=== PATIENT | female | born 1950 | race Caucasian/White ===

== ENCOUNTER 2017-06-08 08:48 | Emergency (ER) | payer OTHER ==
[~2017-06-08] VITALS: Ht 172.7 cm; Wt 104.3 kg
[~2017-06-08 08:48] MED LIST: ? ANTIDEPRESSANT; ALPR.25 PO; ALPR.5; AMLO10; AMOCLA875 PO; ARIP10 PO; ARIP15 PO; ASCO500 PO; ASPI81CH PO; ASPI81EC PO; ATOR20 PO; BUPR150ER PO; Bactrim Ds Tab1 EACH PO; Bupropion Xl150 MG PO; CALCAVITD PO; CARV3.125 PO; CEPH500; CEPH500 PO; CHOL10002 PO; CITA20; COLL250TO; CRANBERRY; DILT120; DILT120ERA PO; DILT180 PO; DILT180ER; DILT240; DILT240 PO; DILTIAZEM; DOXA4; DOXA4 PO; DULO60; DULO60 PO; ESCI20; EZET10; EZET10-20 PO; FISH1000 PO; FLUC150A PO; FLUO10 PO; FLUO20; FLUO20 PO; FURO40; FURO40 PO; FURO80; GABA600; GINKO BILOBA; GLIM4; GLUCHON PO; HYDACE5 PO; HYDCHL25 PO; HYDR1TAB94 PO; Humalog100 UNIT/1; Humalog100 UNIT/3 SC; INSLI100I; INSLI100I SC; INSULANI; INSULANI SC; INSULANI SUBQ; INSULANPEN SC; INSULANPEN SQ; Keflex500 MG PO; LEVFLO500 PO; LISI20; LISI20 PO; LISI5 PO; Lantus100 UNIT/1 SC; MAGCHL64ER PO; MELA3 PO; MEMA10 PO; METF500; METF500 PO; METF500C; METF850; MULVITB PO; MULVITMIND PO; Micro-K10 MEQ; Mobic15 MG PO; NAPR500; NITR100CA PO; Norco 5-325 Ta1 EACH PO; PIOG15; POTCHL10ER PO; PRAV20 PO; PROM25 PO; Percocet 5-3251 EACH PO; Pravastatin Sod40 MG PO; RANI150; RXAMOCLASU PO; SIMV10 PO; SIMV20; SPIR50; SULTRIDS PO; TRAM50 PO; TRIBENZOR 40-11 EAC1 PO; TRIBENZOR 40-51 EACH PO; VALS80; VENL75ER; VIIBRYD40 MG PO; [UNRECOGNIZED DRUG - OTHER]
[2017-06-08 09:35] LABS: BASOPHILS ABSOLUTE AUTO 0.06 K/mm3 (0.00-0.23); BASOPHILS PERCENT AUTO 1 % (0-2); EOSINOPHILS ABSOLUTE AUTO 0.01 K/mm3 (0.00-0.68); EOSINOPHILS PERCENT AUTO 0 % (0-6); Hematocrit 32.5 % (33.0-51.0); Hemoglobin 10.5 g/dL (11.5-16.0); IMMATURE GRAN ABSOLUTE AUTO 0.02 K/mm3 (0.00-0.10); IMMATURE GRAN PERCENT AUTO 0 % (0-1); LYMPHOCYTES ABSOLUTE AUTO 0.89 K/mm3 (0.84-5.20); LYMPHOCYTES PERCENT AUTO 11 % (21-46); MONOCYTES ABSOLUTE AUTO 0.78 K/mm3 (0.16-1.47); MONOCYTES PERCENT AUTO 10 % (4-13); Mean Corpuscular HGB 26.7 pg (26.0-34.0); Mean Corpuscular HGB Conc 32.3 g/dL (31.5-36.5); Mean Corpuscular Volume 83 fL (80-100); Mean Platelet Volume 9.7 fL (9.1-12.4); NEUTROPHILS ABSOLUTE AUTO 6.31 K/mm3 (1.96-9.15); NEUTROPHILS PERCENT AUTO 78 % (41-73); Platelet Count 271 K/mm3 (150-400); RDW Coefficient Variation 14.6 % (11.7-14.2); RDW Standard Deviation 44.2 fL (35.1-46.3); Red Blood Cell Count 3.93 M/mm3 (3.80-5.20); White Blood Cell Count 8.07 K/mm3 (4.00-11.30)
[2017-06-08 09:43] LABS: Bun/Creatinine Ratio 18.9 (12.0-20.0); Calcium, Blood 8.4 mg/dL (8.5-10.1); Creatinine, Blood 1.32 mg/dL (0.40-1.00); Potassium, Blood 3.6 mmol/L (3.5-5.5)
[2017-10-01] MEDS ORDERED: Norco 10-325 T1 EACH PO (06:54)
== END 2017-06-08 18:54 | disposition home or self-care (01) ==
LOC: ER 08:48
PROVIDERS: Emergency Medicine
DX: R53.1 Weakness (principal); Z91.012 Allergy to eggs; Z88.8 Allergy status to other drugs, medicaments and biological substances; Z79.899 Other long term (current) drug therapy; Z79.4 Long term (current) use of insulin; I10 Essential (primary) hypertension; E11.9 Type 2 diabetes mellitus without complications; F32.9 Major depressive disorder, single episode, unspecified; E78.5 Hyperlipidemia, unspecified; F03.90 Unspecified dementia, unspecified severity, without behavioral disturbance, psychotic disturbance, mood disturbance, and anxiety
CPT/HCPCS: 51701; 80048; 85025; 93005; 93010; 96360; 99284; J7030

== ENCOUNTER 2017-09-30 16:01 | Emergency (ER) | payer OTHER ==
[~2017-09-30] VITALS: Ht 172.7 cm; Wt 136.1 kg
[2017-09-30] MEDS ORDERED: LACT10SY (16:18)
[2017-09-30] MEDS ORDERED: HYDRA25 (16:18)
[2017-09-30] MEDS ORDERED: HYDR1TAB94 PO (17:07)
[2017-09-30] MEDS ORDERED: ULTRA-LIGHT RO1 EACH MC (17:13)
[2017-10-01] MEDS ORDERED: Norco 10-325 T1 EACH PO (06:54)
== END 2017-09-30 19:20 | disposition home or self-care (01) ==
LOC: ER 16:01
DX: S32.591A Other specified fracture of right pubis, initial encounter for closed fracture (principal); E11.9 Type 2 diabetes mellitus without complications; I10 Essential (primary) hypertension; F32.9 Major depressive disorder, single episode, unspecified; E78.5 Hyperlipidemia, unspecified; F03.90 Unspecified dementia, unspecified severity, without behavioral disturbance, psychotic disturbance, mood disturbance, and anxiety; Z91.012 Allergy to eggs; Z88.8 Allergy status to other drugs, medicaments and biological substances; Z88.7 Allergy status to serum and vaccine; Z79.899 Other long term (current) drug therapy; Z79.4 Long term (current) use of insulin; Z87.891 Personal history of nicotine dependence; W18.30XA Fall on same level, unspecified, initial encounter
CPT/HCPCS: 73502; 73562-RT; 99283

== ENCOUNTER 2019-02-28 07:48 | Inpatient (IN) | payer OTHER ==
[~2019-02-28] VITALS: Ht 172.7 cm; Wt 122.0 kg
[~2019-02-28 07:48] MED LIST changes: +FURO20 PO; +HYDRA25; +LACT10SY; -Micro-K10 MEQ; +Norco 10-325 T1 EACH PO; +POTCHL20ER PO; +ULTRA-LIGHT RO1 EACH MC
[2019-02-28 08:22] LABS: BASOPHILS ABSOLUTE AUTO 0.11 K/mm3 (0.00-0.23); BASOPHILS PERCENT AUTO 0 % (0-2); EOSINOPHILS PERCENT AUTO 0 % (0-6); Hematocrit 34.1 % (33.0-51.0); Hemoglobin 10.8 g/dL (11.5-16.0); IMMATURE GRAN ABSOLUTE AUTO 0.69 K/mm3 (0.00-0.10); IMMATURE GRAN PERCENT AUTO 2 % (0-1); LYMPHOCYTES ABSOLUTE AUTO 0.49 K/mm3 (0.84-5.20); LYMPHOCYTES PERCENT AUTO 1 % (21-46); MONOCYTES ABSOLUTE AUTO 0.95 K/mm3 (0.16-1.47); MONOCYTES PERCENT AUTO 2 % (4-13); Mean Corpuscular HGB 27.1 pg (26.0-34.0); Mean Corpuscular HGB Conc 31.7 g/dL (31.5-36.5); Mean Corpuscular Volume 86 fL (80-100); Mean Platelet Volume 11.1 fL (9.1-12.4); NEUTROPHILS PERCENT AUTO 95 % (41-73); Platelet Count 267 K/mm3 (150-400); RDW Coefficient Variation 14.2 % (11.7-14.2); RDW Standard Deviation 43.5 fL (35.1-46.3); Red Blood Cell Count 3.98 M/mm3 (3.80-5.20); White Blood Cell Count 41.04 K/mm3 (4.00-11.30)
[2019-02-28 08:35] LABS: Source, Urine Catheter
[2019-02-28 08:37] LABS: Bilirubin, Urine Neg (Neg); Blood, Urine 4+ (Neg); Glucose Qualitative, Urine 2+ (Neg); Ketones, Urine 1+ (Neg); Leukocyte Esterase, Urine Neg (Neg); Nitrite, Urine Neg (Neg); Protein, Urine 4+ (Neg); Urobilinogen, Urine NORM (Normal)
[2019-02-28 08:41] LABS: Albumin, Blood 2.8 g/dL (3.4-5.0); Albumin/Globulin Ratio 0.7 (0.8-1.8); Bilirubin, Total 0.3 mg/dL (0.1-1.0); Bun/Creatinine Ratio 22.3 (12.0-20.0); Calcium, Blood 8.6 mg/dL (8.5-10.1); Creatinine, Blood 1.88 mg/dL (0.40-1.00); Globulin, Blood 4.2 g/dL (2.2-4.0); Potassium, Blood 4.8 mmol/L (3.5-5.5)
[2019-02-28 08:47] LABS: Appearance, Urine Hazy (Clear); Color, Urine Yellow (P-Yellow)
[2019-02-28 08:55] LABS: Amorphous Light (0-Heavy); Bacteria Mod /hpf
[2019-02-28] MEDS ORDERED: ACET500 PO (08:57)
[2019-02-28] MEDS ORDERED: ALEN70 PO (08:58)
[2019-02-28] MEDS ORDERED: DILT60 PO (08:58)
[2019-02-28 08:59] LABS: Granular Casts 0-2 /lpf (0)
[2019-02-28] MEDS ORDERED: FERSU300 PO (08:59)
[2019-02-28] MEDS ORDERED: NYSTRITC TOP (09:00)
[2019-02-28] MEDS ORDERED: OLAN10 PO (09:00)
[2019-02-28] MEDS ORDERED: CRANBERRY250 MG PO (09:02)
[2019-02-28 09:04] LABS: Squamous Epithelial Cells Few /hpf (Few)
[2019-02-28 10:16] LABS: C-REACTIVE PROTEIN, EXT RANGE 3.62 mg/dL (0.000-0.300)
[2019-02-28 10:47] LABS: Creatine Kinase MB 3.4 ng/mL (0.0-3.6); Creatine Kinase MB Index 0.9 (0.0-4.0)
--- NOTE | 2019-02-28 13:30 | NUR ---
PT TRANSFERRED TO ROOM 350 FROM 330, BEDSIDE REPORT RECEIVED FROM SERA BILLS. PT DROWSY, WAKES WITH VERBAL STIMULI, 1 OR 2 WORD ANSWERS, CONFUSED AND VERY FORGETFUL. BED ALARM ARMED, WILL CONTINUE TO MONITOR
--- NOTE | 2019-02-28 13:46 | NUR ---
report given to Lindy Abdullahi RN. patient tranferred to room 350. Caregivers notified of transfer
[2019-02-28] MEDS ORDERED: IRON150C PO (15:12)
[2019-02-28] MEDS ORDERED: IRON 100-VITAM1 EACH PO (15:12)
[2019-02-28] MEDS ORDERED: ERGO400 PO (15:13)
[2019-02-28] MEDS ORDERED: B Complex-Foli1 EACH PO (15:13)
--- NOTE | 2019-02-28 18:24 | NUR ---
PT REMAINS DROWSY, NOT WAKING FULLY TO EAT, DINNER HELD UNTIL PT WILL WAKEN FURTHER.
--- NOTE | 2019-03-01 04:21 | NUR ---
SHIFT SUMMARY PATIENT VERY PLEASANT BUT CONFUSED. SHE IS SLOW TO RESPOND TO QUESTIONS ASKED OF HER. PATIENT ABLE TO SLEEP ALL NIGHT. IV IN RIGHT FOREARM PATENT AND INFUSING. BED IN LOWEST POSITION WITH BRAKES LOCKED AND ALARM ON. CALL LIGHT WITHIN REACH. PALLIATIVE CARE WAS CALLED TO ALERT THEM OF A CONSULT BEING ORDERED FOR THIS PATIENT. REPORT GIVEN TO ONCOMING RN.
[2019-03-01 05:23] LABS: BASOPHILS ABSOLUTE AUTO 0.05 K/mm3 (0.00-0.23); BASOPHILS PERCENT AUTO 0 % (0-2); EOSINOPHILS PERCENT AUTO 0 % (0-6); Hemoglobin 8.3 g/dL (11.5-16.0); IMMATURE GRAN ABSOLUTE AUTO 0.15 K/mm3 (0.00-0.10); IMMATURE GRAN PERCENT AUTO 1 % (0-1); LYMPHOCYTES ABSOLUTE AUTO 1.26 K/mm3 (0.84-5.20); LYMPHOCYTES PERCENT AUTO 6 % (21-46); MONOCYTES ABSOLUTE AUTO 0.76 K/mm3 (0.16-1.47); MONOCYTES PERCENT AUTO 3 % (4-13); Mean Corpuscular HGB 26.2 pg (26.0-34.0); Mean Corpuscular HGB Conc 30.7 g/dL (31.5-36.5); Mean Corpuscular Volume 85 fL (80-100); Mean Platelet Volume 11.6 fL (9.1-12.4); NEUTROPHILS ABSOLUTE AUTO 20.74 K/mm3 (1.96-9.15); NEUTROPHILS PERCENT AUTO 90 % (41-73); Platelet Count 195 K/mm3 (150-400); RDW Coefficient Variation 14.7 % (11.7-14.2); Red Blood Cell Count 3.17 M/mm3 (3.80-5.20); White Blood Cell Count 22.96 K/mm3 (4.00-11.30)
[2019-03-01 05:40] LABS: Albumin/Globulin Ratio 0.6 (0.8-1.8); Bilirubin, Total 0.2 mg/dL (0.1-1.0); Bun/Creatinine Ratio 20.2 (12.0-20.0); Calcium, Blood 7.8 mg/dL (8.5-10.1); Creatinine, Blood 2.18 mg/dL (0.40-1.00); Globulin, Blood 3.5 g/dL (2.2-4.0); Potassium, Blood 4.5 mmol/L (3.5-5.5); Total Protein, Blood 5.5 g/dL (6.4-8.2)
[2019-03-02 05:12] LABS: BASOPHILS ABSOLUTE AUTO 0.03 K/mm3 (0.00-0.23); BASOPHILS PERCENT AUTO 0 % (0-2); EOSINOPHILS ABSOLUTE AUTO 0.02 K/mm3 (0.00-0.68); EOSINOPHILS PERCENT AUTO 0 % (0-6); Hematocrit 25.4 % (33.0-51.0); Hemoglobin 7.9 g/dL (11.5-16.0); IMMATURE GRAN ABSOLUTE AUTO 0.08 K/mm3 (0.00-0.10); IMMATURE GRAN PERCENT AUTO 1 % (0-1); LYMPHOCYTES ABSOLUTE AUTO 1.07 K/mm3 (0.84-5.20); LYMPHOCYTES PERCENT AUTO 7 % (21-46); MONOCYTES ABSOLUTE AUTO 0.67 K/mm3 (0.16-1.47); MONOCYTES PERCENT AUTO 5 % (4-13); Mean Corpuscular HGB 27.3 pg (26.0-34.0); Mean Corpuscular HGB Conc 31.1 g/dL (31.5-36.5); Mean Platelet Volume 10.9 fL (9.1-12.4); NEUTROPHILS ABSOLUTE AUTO 12.93 K/mm3 (1.96-9.15); NEUTROPHILS PERCENT AUTO 88 % (41-73); Platelet Count 172 K/mm3 (150-400); RDW Coefficient Variation 14.8 % (11.7-14.2); RDW Standard Deviation 48.3 fL (35.1-46.3); Red Blood Cell Count 2.89 M/mm3 (3.80-5.20)
[2019-03-02 05:17] LABS: Mean Corpuscular Volume 88 fL (80-100)
[2019-03-02 05:34] LABS: Albumin, Blood 1.9 g/dL (3.4-5.0); Albumin/Globulin Ratio 0.5 (0.8-1.8); Bilirubin, Total 0.1 mg/dL (0.1-1.0); Bun/Creatinine Ratio 21.7 (12.0-20.0); Calcium, Blood 7.7 mg/dL (8.5-10.1); Creatinine, Blood 2.21 mg/dL (0.40-1.00); Globulin, Blood 3.6 g/dL (2.2-4.0); Potassium, Blood 4.4 mmol/L (3.5-5.5); Total Protein, Blood 5.5 g/dL (6.4-8.2)
--- NOTE | 2019-03-02 05:49 | NUR ---
SHIFT SUMMARY NO ACUTE EVENTS OVERNIGHT. PT IS A&0, 1 PER ASSIST IN BR. PT IS SLOW TO RESPOND, DISORIENTED TO CURRENT DATER OTHERWISE ANSWERS Q'S APPROP. WILL CONT TO MONITOR AND PROVIDE CARE UNTIL PRESUMED BY ONCOMING RN.
[2019-03-02] MEDS ORDERED: CLIN150 PO (11:13)
--- NOTE | 2019-03-02 13:44 | NUR ---
DISCHARGE PT IS PLEASANT/COOPERATIVE HOWEVER CONFUSED, VERY FORGETFUL. L LEG CELLULITIS IMPROVING, MILDLY RED, SOMEWHAT SWOLLEN 1+. SHE STATE PAIN W MOVEMENT/WTBRG, PRN TYLENOL GIVEN FOR RELIEF. DR MENDEZ IN TO SEE PT, STATE READY TO GO HOME, PROVIDE ORDERS. [facility] NOTIFIED. BUSINESS PROCESS MODELER SET-UP TRANSPORT THRU TRANSLINK. IV D/C INTACT. CERTIFIED NURSE ASSIST PT TO DRESS/GATHER BELONGINGS. D/C INSTRUCT PLACED IN PACKET & SENT W W/C ELEVATOR REPAIR MECHANIC TO PROVIDE TO CAREGIVERS @ [facility]. SCRIPT FAXED TO [facility]/CAREGIVER.
== END 2019-03-02 13:37 | disposition home health service (06) | DRG 872 ==
LOC: ER 07:48 → MEDS 11:01 → ENPENDDIS 03-02 10:59 → MEDS 03-02 13:37
PROVIDERS: Emergency Medicine; Internal Medicine; Nurse Practitioner Acute Care; ADMIT Internal Medicine
DX: A41.9 Sepsis, unspecified organism (principal); N17.9 Acute kidney failure, unspecified; N18.4 Chronic kidney disease, stage 4 (severe); L03.116 Cellulitis of left lower limb; Z68.42 Body mass index [BMI] 45.0-49.9, adult; R65.20 Severe sepsis without septic shock; E11.22 Type 2 diabetes mellitus with diabetic chronic kidney disease; F03.90 Unspecified dementia, unspecified severity, without behavioral disturbance, psychotic disturbance, mood disturbance, and anxiety; F32.9 Major depressive disorder, single episode, unspecified; I12.9 Hypertensive chronic kidney disease with stage 1 through stage 4 chronic kidney disease, or unspecified chronic kidney disease; E11.42 Type 2 diabetes mellitus with diabetic polyneuropathy; E86.0 Dehydration; M81.0 Age-related osteoporosis without current pathological fracture; E66.9 Obesity, unspecified; Z87.891 Personal history of nicotine dependence; Z89.422 Acquired absence of other left toe(s)
CPT/HCPCS: 36415; 71046; 80053; 81001; 82550; 82553; 82947; 83605; 83735; 84100; 85025; 85651; 86140; 87086; 96365; 97162; 97166; 97530; 97535; 99285-25; J1644; J3370; J7030; J7050; P9612

== ENCOUNTER 2019-06-10 09:29 | Inpatient (IN) | payer OTHER ==
[~2019-06-10] VITALS: Ht 172.7 cm; Wt 117.9 kg
[~2019-06-10 09:29] MED LIST changes: +ACET500 PO; +ALEN70 PO; +B Complex-Foli1 EACH PO; -Bupropion Xl150 MG PO; +CLIN150 PO; +CRANBERRY250 MG PO; +DILT60 PO; +ERGO400 PO; +IRON 100-VITAM1 EACH PO; +IRON150C PO; +NYSTRITC TOP; +OLAN10 PO; +Vitron-C Table1 EACH PO
[2019-06-10] MEDS ORDERED: FURO20 PO (09:49)
[2019-06-10] MEDS ORDERED: POTA10T PO ×2 (09:49→14:35)
[2019-06-10] MEDS ORDERED: VITAMIN D34000 UNIT PO (09:54)
[2019-06-10] MEDS ORDERED: Cranberry400 MG PO (09:55)
[2019-06-10 12:06] LABS: Source, Urine Clean Catch
[2019-06-10 12:20] LABS: Bilirubin, Urine Neg (Neg); Blood, Urine 2+ (Neg); Glucose Qualitative, Urine 2+ (Neg); Ketones, Urine Neg (Neg); Leukocyte Esterase, Urine Neg (Neg); Nitrite, Urine Neg (Neg); Protein, Urine 4+ (Neg); Specific Gravity, Urine 1.015 (1.003-1.022); Urobilinogen, Urine NORM (Normal)
[2019-06-10 12:26] LABS: BASOPHILS ABSOLUTE AUTO 0.05 K/mm3 (0.00-0.23); BASOPHILS PERCENT AUTO 1 % (0-2); EOSINOPHILS ABSOLUTE AUTO 0.01 K/mm3 (0.00-0.68); EOSINOPHILS PERCENT AUTO 0 % (0-6); Hemoglobin 10.3 g/dL (11.5-16.0); IMMATURE GRAN ABSOLUTE AUTO 0.04 K/mm3 (0.00-0.10); IMMATURE GRAN PERCENT AUTO 1 % (0-1); LYMPHOCYTES ABSOLUTE AUTO 0.51 K/mm3 (0.84-5.20); LYMPHOCYTES PERCENT AUTO 7 % (21-46); MONOCYTES PERCENT AUTO 5 % (4-13); Mean Corpuscular HGB Conc 30.3 g/dL (31.5-36.5); Mean Corpuscular Volume 89 fL (80-100); Mean Platelet Volume 10.4 fL (9.1-12.4); NEUTROPHILS ABSOLUTE AUTO 6.64 K/mm3 (1.96-9.15); NEUTROPHILS PERCENT AUTO 87 % (41-73); Platelet Count 220 K/mm3 (150-400); RDW Coefficient Variation 14.7 % (11.7-14.2); RDW Standard Deviation 47.4 fL (35.1-46.3); Red Blood Cell Count 3.82 M/mm3 (3.80-5.20); White Blood Cell Count 7.65 K/mm3 (4.00-11.30)
[2019-06-10 12:31] LABS: Influenza A Positive (NEGATIVE); Influenza B Negative (NEGATIVE)
[2019-06-10 12:39] LABS: Appearance, Urine Hazy (Clear); Color, Urine Yellow (P-Yellow)
[2019-06-10 12:43] LABS: Albumin, Blood 2.5 g/dL (3.4-5.0); Albumin/Globulin Ratio 0.6 (0.8-1.8); Bilirubin, Total 0.3 mg/dL (0.1-1.0); Bun/Creatinine Ratio 15.3 (12.0-20.0); Calcium, Blood 8.1 mg/dL (8.5-10.1); Creatinine, Blood 1.76 mg/dL (0.40-1.00); Globulin, Blood 4.1 g/dL (2.2-4.0); Potassium, Blood 4.1 mmol/L (3.5-5.5); Total Protein, Blood 6.6 g/dL (6.4-8.2)
[2019-06-10 12:46] LABS: Red Blood Cells, Urine 0-2 /hpf (0-2); Squamous Epithelial Cells Rare /hpf (Few)
[2019-06-10 12:47] LABS: Amorphous Heavy (0-Heavy); Bacteria Mod /hpf; Transitional Epithelial Cells Rare /hpf (0-Rare)
[2019-06-10] MEDS ORDERED: OLANZAPINE10 MG PO (14:29)
[2019-06-10] MEDS ORDERED: MEMANTINE HCL10 MG PO (14:29)
[2019-06-10] MEDS ORDERED: Vitamin D2000 UNIT PO (14:30)
[2019-06-10] MEDS ORDERED: ARIP10 PO (14:30)
[2019-06-10] MEDS ORDERED: ALENDRONATE SOD70 MG PO (14:33)
[2019-06-10] MEDS ORDERED: FERSU300 PO (14:34)
[2019-06-10] MEDS ORDERED: ASCO500 PO (14:34)
[2019-06-10] MEDS ORDERED: B Complex-Foli1 EACH PO (14:35)
[2019-06-10] MEDS ORDERED: ACET500 PO (18:25)
[2019-06-10] MEDS ORDERED: NYAMYC15 GM TOP (18:29)
--- NOTE | 2019-06-10 18:51 | NUR ---
SHIFT SUMMARY PT WAS AN ER ADMIT THIS ALIA. SHE OPENS HER EYES WHEN YOU SAY HER NAME BUT IS VERY DROWSY AND NOT ORIENTED OTHER THAN TO HERSELF. SHE IS INC AND X 2 MAX ASSIST FOR TURNING AND TOILETING. PO MEDS WERE HELD DUE TO HER NOT BEING ABLE TO SWALLOW AND WAS NOTIFIED. PER PALLIATIVE CARE BAR STAFF IS AN ISSUE FOR THIS PT. SHE IS RESTING IN BED WITH THE BED ALARM ON FOR SAFETY. REPORT GIVEN TO ONCOMING NURSE.
--- NOTE | 2019-06-10 23:42 | NUR ---
ELEVATED BP @HS *LATE ENTRY* BP WAS 181/95, 10MG IV HYDRALAZINE GIVEN PER ORDERS WHEN BP RECHECKED IT DECREASED TO 162/78. CALL LIGHT IN REACH WCTM.
--- NOTE | 2019-06-11 01:01 | NUR ---
SAAVEDRA PLACED 14 FR SAAVEDRA PLACED, SINCE ORDERS WERE ENTERED FOR ONE ALONG W/STRICT I&O & PT DID NOT HAVE ONE YET. BLADDER SCANNED BEFORE PLACING CATH & PT HAD 389ML IN BLADDER. PT TOLERATED WELL & UA WAS SENT TO LAB PER PROTOCOL. CALL LIGHT IN REACH. TM.
[2019-06-11 01:17] LABS: Source, Urine Catheter
[2019-06-11 01:22] LABS: Bilirubin, Urine Neg (Neg); Blood, Urine 3+ (Neg); Glucose Qualitative, Urine 2+ (Neg); Ketones, Urine Neg (Neg); Leukocyte Esterase, Urine Neg (Neg); Nitrite, Urine Neg (Neg); Protein, Urine 4+ (Neg); Specific Gravity, Urine 1.025 (1.003-1.022); Urobilinogen, Urine NORM (Normal)
[2019-06-11 01:28] LABS: Appearance, Urine Clear (Clear); Color, Urine Yellow (P-Yellow)
[2019-06-11 01:30] LABS: Amorphous Light (0-Heavy); Bacteria Rare /hpf; Hyaline Casts 0-2 /lpf (0-2); Squamous Epithelial Cells Rare /hpf (Few); White Blood Cells, Urine Not Seen /hpf (0-5)
[2019-06-11 02:09] LABS: BASOPHILS ABSOLUTE AUTO 0.02 K/mm3 (0.00-0.23); BASOPHILS PERCENT AUTO 0 % (0-2); EOSINOPHILS PERCENT AUTO 0 % (0-6); Hematocrit 31.4 % (33.0-51.0); Hemoglobin 9.7 g/dL (11.5-16.0); IMMATURE GRAN ABSOLUTE AUTO 0.03 K/mm3 (0.00-0.10); IMMATURE GRAN PERCENT AUTO 1 % (0-1); LYMPHOCYTES ABSOLUTE AUTO 0.68 K/mm3 (0.84-5.20); LYMPHOCYTES PERCENT AUTO 11 % (21-46); MONOCYTES PERCENT AUTO 6 % (4-13); Mean Corpuscular HGB Conc 30.9 g/dL (31.5-36.5); Mean Corpuscular Volume 88 fL (80-100); Mean Platelet Volume 10.5 fL (9.1-12.4); NEUTROPHILS ABSOLUTE AUTO 5.17 K/mm3 (1.96-9.15); NEUTROPHILS PERCENT AUTO 82 % (41-73); Platelet Count 189 K/mm3 (150-400); RDW Coefficient Variation 14.7 % (11.7-14.2); RDW Standard Deviation 47.3 fL (35.1-46.3); Red Blood Cell Count 3.59 M/mm3 (3.80-5.20)
[2019-06-11 02:53] LABS: Albumin/Globulin Ratio 0.6 (0.8-1.8); Bilirubin, Total 0.2 mg/dL (0.1-1.0); Bun/Creatinine Ratio 16.6 (12.0-20.0); Calcium, Blood 7.8 mg/dL (8.5-10.1); Creatinine, Blood 1.93 mg/dL (0.40-1.00); Globulin, Blood 3.6 g/dL (2.2-4.0); Potassium, Blood 3.8 mmol/L (3.5-5.5); Total Protein, Blood 5.6 g/dL (6.4-8.2)
--- NOTE | 2019-06-11 06:09 | NUR ---
SHIFT SUMMARY AOX2, SELF & TOWN ONLY. CAN ANSWER SIMPLE YES/NO QUESTIONS & FOLLOW DIRECTIONS. STATES SHE IS VERY TIRED. DENIES PAIN OR NAUSEA. TELE RUNNING NSR HR 82. VSS. SAAVEDRA PLACED PER ORDERS FOR STRICT I&O. NITRO PATCHED PLACED PER ORDERS. TURNED & REPOSITIONED PRN. CALL LIGHT IN REACH. WCTM.
--- NOTE | 2019-06-11 09:57 | NUR ---
SPOKE WITH DR. NGO VIA PHONE, NPO ORDER IN PLACE BUT PROVIDER STATES OK TO GIVE ORAL MEDS THIS AM IF ALERT. IF COUGHING WHILE ATTEMPTING MEDS TO GET A SPEECH EVAL.
[2019-06-12 05:27] LABS: Hematocrit 31.4 % (33.0-51.0); Hemoglobin 9.6 g/dL (11.5-16.0)
[2019-06-12 05:57] LABS: Albumin, Blood 1.9 g/dL (3.4-5.0); Anion Gap 6 mmol/L (6-16); Blood Urea Nitrogen 42 mg/dL (8-24); Bun/Creatinine Ratio 18.9 (12.0-20.0); CO2, Blood 26 mmol/L (21-32); Calcium, Blood 7.6 mg/dL (8.5-10.1); Chloride, Blood 111 mmol/L (98-108); Creatinine, Blood 2.22 mg/dL (0.40-1.00); Glomerular Filtration Rate 23 (60-); Glucose, Blood 95 mg/dL (70-99); Phosphorus, Blood 3.2 mg/dL (2.5-4.9); Potassium, Blood 3.9 mmol/L (3.5-5.5); Sodium, Blood 143 mmol/L (136-145)
--- NOTE | 2019-06-12 07:53 | NUR ---
SHIFT SUMMARY ALERT-TO SELF & PLACE ONLY. VERY FORGETFUL & CONFUSED @TIMES. THINKS ITS JAN 2003. HAS SET OFF BED ALARM MULTIPLE TIMES T/O NIGHT. IS MORE VERBAL TONIGHT THEN PREVIOUS, IS ABLE TO ANSWER ALL QUESTIONS & FOLLOW DIRECTIONS, BUT QUICKLY FORGETS WHAT HAS BEEN DISCUSSED. DENIES PAIN OR N/V OR DYSPNEA. SPO2 >90% ON 1L. FLU A +. TELE IN PLACE RUNNING NSR HR 70. CALL LIGHT IN REACH.
--- NOTE | 2019-06-12 09:34 | NUR ---
handing off care to Leatha Marcano RN
--- NOTE | 2019-06-12 12:26 | NUR ---
PT DIURESED WELL AFTER AM LASIX. APPROX 625 MLS UO VIA SAAVEDRA OBSERVED THEN KERI DC'D WNL. WILL MONITOR FOR S/S RETENTION AND ASSIST W/TOILETING PRN.
--- NOTE | 2019-06-12 13:30 | NUR ---
REPORT PROVIDED TO JASPER CASTELLANOS WHO'S NOW RESUMING CARE.
[2019-06-12] MEDS ORDERED: Folic Acid-Vit1 EACH PO (15:28)
[2019-06-12] MEDS ORDERED: ASPI81CH PO (15:49)
[2019-06-12] MEDS ORDERED: ATOR40TA PO (15:49)
[2019-06-12] MEDS ORDERED: CARV6.25 PO (15:50)
[2019-06-12] MEDS ORDERED: Tamiflu30 MG PO (15:51)
--- NOTE | 2019-06-12 16:46 | NUR ---
DISCHARGE NOTE PATIENT DISCHARGE WITH EMS TRANSPORT. SHE HAD PULLED. IV SITTING ON BEDSIDE TABLE. PATIENT EASY 1 PERSON ASSIST TO BSC. NOTIFIED [facility] OF PATIENT RETURN TO [facility]. FAXED [facility] WITH NEW RX'S.
== END 2019-06-12 16:42 | disposition home health service (06) | DRG 291 ==
LOC: ER 09:29 → MEDS 17:03
PROVIDERS: Emergency Medicine; Internal Medicine; Nurse Practitioner Acute Care; Physician Assistant; ADMIT Family Medicine
DX: I13.0 Hypertensive heart and chronic kidney disease with heart failure and stage 1 through stage 4 chronic kidney disease, or unspecified chronic kidney disease (principal); G92 Toxic encephalopathy; I50.31 Acute diastolic (congestive) heart failure; J18.9 Pneumonia, unspecified organism; F03.91 Unspecified dementia, unspecified severity, with behavioral disturbance; F05 Delirium due to known physiological condition; N18.4 Chronic kidney disease, stage 4 (severe); J10.1 Influenza due to other identified influenza virus with other respiratory manifestations; E11.22 Type 2 diabetes mellitus with diabetic chronic kidney disease; E66.01 Morbid (severe) obesity due to excess calories; Z66 Do not resuscitate; Z51.5 Encounter for palliative care; Z87.891 Personal history of nicotine dependence; Z68.39 Body mass index [BMI] 39.0-39.9, adult
CPT/HCPCS: 36415; 70450; 71046; 80053; 80069; 81001; 83735; 83880; 84484; 85014; 85018; 85025; 87070; 87081; 87086; 87804; 93005; 93010; 93971; 96374; 96375; 97110; 97162; 97165; 97530; 99285-25; A9270-GY; J0360; J1644; J1940

== ENCOUNTER 2019-06-22 10:50 | Emergency (ER) | payer OTHER ==
[~2019-06-22] VITALS: Ht 172.7 cm; Wt 136.1 kg
[~2019-06-22 10:50] MED LIST changes: +ALENDRONATE SOD70 MG PO; +ATOR40TA PO; +CARV6.25 PO; +Cranberry400 MG PO; +FERSU300 PO; +Folic Acid-Vit1 EACH PO; +MEMANTINE HCL10 MG PO; +NYAMYC15 GM TOP; +OLANZAPINE10 MG PO; +POTA10T PO; +Tamiflu30 MG PO; +VITAMIN D34000 UNIT PO; +Vitamin D2000 UNIT PO
[2019-06-22 12:00] LABS: BASOPHILS ABSOLUTE AUTO 0.03 K/mm3 (0.00-0.23); BASOPHILS PERCENT AUTO 0 % (0-2); EOSINOPHILS ABSOLUTE AUTO 0.31 K/mm3 (0.00-0.68); EOSINOPHILS PERCENT AUTO 2 % (0-6); Hematocrit 31.4 % (33.0-51.0); Hemoglobin 9.6 g/dL (11.5-16.0); IMMATURE GRAN ABSOLUTE AUTO 0.11 K/mm3 (0.00-0.10); IMMATURE GRAN PERCENT AUTO 1 % (0-1); LYMPHOCYTES ABSOLUTE AUTO 0.94 K/mm3 (0.84-5.20); LYMPHOCYTES PERCENT AUTO 7 % (21-46); MONOCYTES ABSOLUTE AUTO 0.58 K/mm3 (0.16-1.47); MONOCYTES PERCENT AUTO 4 % (4-13); Mean Corpuscular HGB 27.6 pg (26.0-34.0); Mean Corpuscular HGB Conc 30.6 g/dL (31.5-36.5); Mean Corpuscular Volume 90 fL (80-100); Mean Platelet Volume 10.5 fL (9.1-12.4); NEUTROPHILS ABSOLUTE AUTO 11.73 K/mm3 (1.96-9.15); NEUTROPHILS PERCENT AUTO 86 % (41-73); Platelet Count 341 K/mm3 (150-400); RDW Coefficient Variation 14.4 % (11.7-14.2); RDW Standard Deviation 47.3 fL (35.1-46.3); Red Blood Cell Count 3.48 M/mm3 (3.80-5.20)
[2019-06-22 12:13] LABS: Albumin, Blood 2.1 g/dL (3.4-5.0); Albumin/Globulin Ratio 0.5 (0.8-1.8); Bilirubin, Total 0.2 mg/dL (0.1-1.0); Bun/Creatinine Ratio 17.7 (12.0-20.0); Calcium, Blood 7.9 mg/dL (8.5-10.1); Creatinine, Blood 2.2 mg/dL (0.40-1.00); Globulin, Blood 4.1 g/dL (2.2-4.0); Potassium, Blood 4.4 mmol/L (3.5-5.5); Total Protein, Blood 6.2 g/dL (6.4-8.2)
[2019-06-22] MEDS ORDERED: ONDA4ODT MM (14:36)
[2019-06-22] MEDS ORDERED: Loperamide2 MG PO (14:36)
== END 2019-06-22 16:33 | disposition home or self-care (01) ==
LOC: ER 10:50
PROVIDERS: Emergency Medicine
DX: K52.9 Noninfective gastroenteritis and colitis, unspecified (principal); F32.9 Major depressive disorder, single episode, unspecified; E78.5 Hyperlipidemia, unspecified; I12.9 Hypertensive chronic kidney disease with stage 1 through stage 4 chronic kidney disease, or unspecified chronic kidney disease; N18.3 Chronic kidney disease, stage 3 (moderate); F03.90 Unspecified dementia, unspecified severity, without behavioral disturbance, psychotic disturbance, mood disturbance, and anxiety; E11.22 Type 2 diabetes mellitus with diabetic chronic kidney disease; Z88.2 Allergy status to sulfonamides; Z79.899 Other long term (current) drug therapy
CPT/HCPCS: 74176; 76705; 80053; 83690; 85025; 99284-25

== ENCOUNTER 2019-08-20 12:07 | Emergency (ER) | payer OTHER ==
[~2019-08-20] VITALS: Ht 177.8 cm; Wt 113.4 kg
[~2019-08-20 12:07] MED LIST changes: +Loperamide2 MG PO; +ONDA4ODT MM
[2019-08-20 13:04] LABS: BASOPHILS ABSOLUTE AUTO 0.05 K/mm3 (0.00-0.23); BASOPHILS PERCENT AUTO 0 % (0-2); EOSINOPHILS PERCENT AUTO 0 % (0-6); Hemoglobin 9.5 g/dL (11.5-16.0); IMMATURE GRAN ABSOLUTE AUTO 0.44 K/mm3 (0.00-0.10); IMMATURE GRAN PERCENT AUTO 2 % (0-1); LYMPHOCYTES ABSOLUTE AUTO 0.64 K/mm3 (0.84-5.20); LYMPHOCYTES PERCENT AUTO 2 % (21-46); MONOCYTES ABSOLUTE AUTO 0.53 K/mm3 (0.16-1.47); MONOCYTES PERCENT AUTO 2 % (4-13); Mean Corpuscular HGB 28.6 pg (26.0-34.0); Mean Corpuscular HGB Conc 31.7 g/dL (31.5-36.5); Mean Corpuscular Volume 90 fL (80-100); NEUTROPHILS ABSOLUTE AUTO 25.96 K/mm3 (1.96-9.15); NEUTROPHILS PERCENT AUTO 94 % (41-73); Platelet Count 218 K/mm3 (150-400); RDW Standard Deviation 46.6 fL (35.1-46.3); Red Blood Cell Count 3.32 M/mm3 (3.80-5.20); White Blood Cell Count 27.62 K/mm3 (4.00-11.30)
[2019-08-20 13:18] LABS: International Normalized Ratio 1.11; Prothrombin Time Results 11.8 Sec (9.7-11.5)
[2019-08-20 13:29] LABS: Albumin, Blood 2.3 g/dL (3.4-5.0); Albumin/Globulin Ratio 0.6 (0.8-1.8); Bilirubin, Total 0.3 mg/dL (0.1-1.0); Bun/Creatinine Ratio 20.3 (12.0-20.0); Calcium, Blood 7.9 mg/dL (8.5-10.1); Creatinine, Blood 2.22 mg/dL (0.40-1.00); Potassium, Blood 4.4 mmol/L (3.5-5.5); Total Protein, Blood 6.3 g/dL (6.4-8.2)
[2019-08-20] MEDS ORDERED: ACET500 PO (15:15)
[2019-08-20] MEDS ORDERED: FOSAMAX70 MG PO (15:15)
[2019-08-20] MEDS ORDERED: CARV6.25 PO (15:16)
[2019-08-20] MEDS ORDERED: BISMUTH SUBSALICYLATE PO (15:16)
[2019-08-20] MEDS ORDERED: DILT60 PO (15:17)
[2019-08-20] MEDS ORDERED: FERSU300 PO (15:20)
[2019-08-20] MEDS ORDERED: ASCO500 PO (15:21)
[2019-08-20] MEDS ORDERED: LOPE2C PO (15:21)
[2019-08-20] MEDS ORDERED: GUAI600T33 PO (15:21)
[2019-08-20] MEDS ORDERED: FURO20 PO (15:21)
[2019-08-20] MEDS ORDERED: MEMA10 PO (15:21)
[2019-08-20] MEDS ORDERED: ONDA4 PO (15:22)
[2019-08-20] MEDS ORDERED: OLAN10 PO (15:22)
[2019-08-20] MEDS ORDERED: NYAMYC15 GM TOP (15:22)
[2019-08-20] MEDS ORDERED: POTCHL20ER PO (15:22)
[2019-08-20] MEDS ORDERED: ERGO50000 PO (15:23)
[2019-08-20] MEDS ORDERED: B Complex-Foli1 EACH PO (15:24)
[2019-08-20] MEDS ORDERED: Hair, Skin & N1 EACH PO (15:24)
[2019-08-20 15:53] LABS: Bilirubin, Urine Neg (Neg); Blood, Urine 4+ (Neg); Glucose Qualitative, Urine 2+ (Neg); Leukocyte Esterase, Urine 2+ (Neg); Nitrite, Urine Neg (Neg); Protein, Urine 4+ (Neg); Source, Urine Catheter; Urobilinogen, Urine NORM (Normal)
[2019-08-20 16:19] LABS: Appearance, Urine Clear (Clear); Color, Urine Yellow (P-Yellow); Ketones, Urine Neg (Neg)
[2019-08-20 16:20] LABS: Bacteria Many /hpf; Squamous Epithelial Cells Few /hpf (Few); White Blood Cells, Urine 50-100 /hpf (0-5)
[2019-08-20] MEDS ORDERED: Macrobid 100 M100 MG PO (17:11)
[2019-08-20] MEDS ORDERED: CEPH500 PO (17:11)
== END 2019-08-20 17:48 | disposition home or self-care (01) ==
LOC: ER 12:07
PROVIDERS: Emergency Medicine
DX: R41.82 Altered mental status, unspecified (principal); N39.0 Urinary tract infection, site not specified; I10 Essential (primary) hypertension; E11.9 Type 2 diabetes mellitus without complications; F03.90 Unspecified dementia, unspecified severity, without behavioral disturbance, psychotic disturbance, mood disturbance, and anxiety; F32.9 Major depressive disorder, single episode, unspecified; E78.5 Hyperlipidemia, unspecified; Z79.82 Long term (current) use of aspirin; Z79.899 Other long term (current) drug therapy; Z91.012 Allergy to eggs; Z88.7 Allergy status to serum and vaccine; Z88.2 Allergy status to sulfonamides; Z88.8 Allergy status to other drugs, medicaments and biological substances
CPT/HCPCS: 36415; 71046; 80053; 81001; 84443; 85025; 85610; 93005; 93010; 96361; 96365; 99285-25; J0696; J7030

== ENCOUNTER 2019-11-15 18:58 | Inpatient (IN) | payer OTHER ==
[~2019-11-15] VITALS: Ht 172.7 cm; Wt 108.9 kg
[~2019-11-15 18:58] MED LIST changes: +BISMUTH SUBSALICYLATE PO; +ERGO50000 PO; +FOSAMAX70 MG PO; +GUAI600T33 PO; +Hair, Skin & N1 EACH PO; +LOPE2C PO; +Macrobid 100 M100 MG PO; +ONDA4 PO
[2019-11-15 19:40] LABS: BASOPHILS ABSOLUTE AUTO 0.06 K/mm3 (0.00-0.23); BASOPHILS PERCENT AUTO 0 % (0-2); EOSINOPHILS PERCENT AUTO 0 % (0-6); Hematocrit 32.4 % (33.0-51.0); IMMATURE GRAN ABSOLUTE AUTO 0.12 K/mm3 (0.00-0.10); IMMATURE GRAN PERCENT AUTO 1 % (0-1); LYMPHOCYTES ABSOLUTE AUTO 1.03 K/mm3 (0.84-5.20); LYMPHOCYTES PERCENT AUTO 5 % (21-46); MONOCYTES ABSOLUTE AUTO 0.57 K/mm3 (0.16-1.47); MONOCYTES PERCENT AUTO 3 % (4-13); Mean Corpuscular HGB 28.5 pg (26.0-34.0); Mean Corpuscular HGB Conc 30.9 g/dL (31.5-36.5); Mean Corpuscular Volume 92 fL (80-100); Mean Platelet Volume 10.3 fL (9.1-12.4); NEUTROPHILS ABSOLUTE AUTO 20.04 K/mm3 (1.96-9.15); NEUTROPHILS PERCENT AUTO 92 % (41-73); Platelet Count 228 K/mm3 (150-400); RDW Coefficient Variation 13.5 % (11.7-14.2); RDW Standard Deviation 45.7 fL (35.1-46.3); Red Blood Cell Count 3.51 M/mm3 (3.80-5.20); White Blood Cell Count 21.82 K/mm3 (4.00-11.30)
[2019-11-15 19:53] LABS: Alanine Aminotransfer (ALT/SGP 15 U/L (12-78); Albumin, Blood 2.3 g/dL (3.4-5.0); Albumin/Globulin Ratio 0.5 (0.8-1.8); Alk Phos 88 U/L (50-136); Anion Gap 7 mmol/L (6-16); Aspartate Aminotrans (AST/SGOT 16 U/L (12-37); Bilirubin, Total 0.2 mg/dL (0.1-1.0); Blood Urea Nitrogen 47 mg/dL (8-24); Bun/Creatinine Ratio 19.2 (12.0-20.0); CO2, Blood 19 mmol/L (21-32); Chloride, Blood 113 mmol/L (98-108); Creatinine, Blood 2.45 mg/dL (0.40-1.00); Globulin, Blood 4.3 g/dL (2.2-4.0); Glomerular Filtration Rate 21 (60-); Glucose, Blood 154 mg/dL (70-99); Sodium, Blood 139 mmol/L (136-145); Total Protein, Blood 6.6 g/dL (6.4-8.2)
[2019-11-15 20:32] LABS: Source, Urine Clean Catch
[2019-11-15] MEDS ORDERED: Vitamin D2000 UNIT PO (20:35)
[2019-11-15] MEDS ORDERED: Aspirin EC81 MG PO (20:36)
[2019-11-15] MEDS ORDERED: ATOR40TA PO (20:37)
[2019-11-15 20:40] LABS: Bilirubin, Urine Neg (Neg); Blood, Urine 2+ (Neg); Glucose Qualitative, Urine 2+ (Neg); Ketones, Urine Neg (Neg); Leukocyte Esterase, Urine Neg (Neg); Nitrite, Urine Neg (Neg); Protein, Urine 4+ (Neg); Specific Gravity, Urine 1.015 (1.003-1.022); Urobilinogen, Urine NORM (Normal)
[2019-11-15 20:54] LABS: Appearance, Urine Clear (Clear); Color, Urine Pale Yellow (P-Yellow)
[2019-11-15 20:55] LABS: Amorphous Heavy (0-Heavy); Bacteria Rare /hpf; Red Blood Cells, Urine Rare /hpf (0-2); Squamous Epithelial Cells Rare /hpf (Few); White Blood Cells, Urine Rare /hpf (0-5)
--- NOTE | 2019-11-16 02:10 | NUR ---
0210 ASSUMPTION OF CARE RECIEVED REPORT FROM SANJU SMALL. PATIENT APPEARS TO BE RESTING. NO ACUTE NEEDS AT THIS TIME. WCTM.
[2019-11-16 05:10] LABS: BASOPHILS ABSOLUTE AUTO 0.04 K/mm3 (0.00-0.23); BASOPHILS PERCENT AUTO 0 % (0-2); EOSINOPHILS ABSOLUTE AUTO 0.01 K/mm3 (0.00-0.68); EOSINOPHILS PERCENT AUTO 0 % (0-6); Hematocrit 29.5 % (33.0-51.0); Hemoglobin 8.9 g/dL (11.5-16.0); IMMATURE GRAN ABSOLUTE AUTO 0.14 K/mm3 (0.00-0.10); IMMATURE GRAN PERCENT AUTO 1 % (0-1); LYMPHOCYTES ABSOLUTE AUTO 1.34 K/mm3 (0.84-5.20); LYMPHOCYTES PERCENT AUTO 7 % (21-46); MONOCYTES ABSOLUTE AUTO 0.85 K/mm3 (0.16-1.47); MONOCYTES PERCENT AUTO 5 % (4-13); Mean Corpuscular HGB 28.3 pg (26.0-34.0); Mean Corpuscular HGB Conc 30.2 g/dL (31.5-36.5); Mean Corpuscular Volume 94 fL (80-100); Mean Platelet Volume 10.6 fL (9.1-12.4); NEUTROPHILS ABSOLUTE AUTO 16.02 K/mm3 (1.96-9.15); NEUTROPHILS PERCENT AUTO 87 % (41-73); Platelet Count 208 K/mm3 (150-400); RDW Coefficient Variation 13.5 % (11.7-14.2); RDW Standard Deviation 46.4 fL (35.1-46.3); Red Blood Cell Count 3.15 M/mm3 (3.80-5.20)
--- NOTE | 2019-11-16 05:33 | NUR ---
SHIFT SUMMARY RESPONDS TO VERBAL STIMULI. COOPERATIVE WITH CARE. NO SIGNS/SX OF PAIN/DISCOMFORT NOTED. APPEARS TO HAVE RESTED THE ENTIRE TIME SINCE ASSUMPTION OF CARE. NO ACUTE CHANGES NOTED. VSS/AFEBRILE. BED REMAINS IN LOWEST POSITION; ALARM ON. CALL LIGHT WITHIN REACH. WCTM. REPORT TO ONCOMING RN.
[2019-11-16 05:42] LABS: Bun/Creatinine Ratio 18.1 (12.0-20.0); Calcium, Blood 7.6 mg/dL (8.5-10.1); Creatinine, Blood 2.59 mg/dL (0.40-1.00)
--- NOTE | 2019-11-16 17:27 | NUR ---
SHIFT SUMMARY PT A/O X 3. PT PLEASANT AND CONVERSING WELL. MD AGREED TO KEEP SAAVEDRA UNTIL PT WORKS WITH PT. PT UP AT BEDSIDE DURING MEALS AND MONITORED. SPOKE WITH FACILITY REGARDING PT CONDITION. FACILITY IS AGREEABLE TO ACCEPT PT BACK BUT HAVE SOME CONCERNS THEY WOULD LIKE TO FOLLOW UP WITH THE MD ABOUT.
--- NOTE | 2019-11-17 04:38 | NUR ---
SUMMARY PT REMAINS FORGETFUL AND CONFUSED. PT DID PULL OUT IV AND FORGOT THAT SHE DID SO. PT HAS TRIED TO GET OUT OF BED AND WAS EASILY REDIRECTED. PT SAAVEDRA HAS BEEN DRAINING W/ SOME BLOOD CLOTS NOTED. PT DENIES ANY PAIN OR DISCOMFORT. PT WAS UP LATE WATCHING TV. PT CURRENTLY SLEEPING AND BREATHING EASY. CALL LIGHT IN REACH AND BED ALARM ON.
[2019-11-17 05:22] LABS: BASOPHILS ABSOLUTE AUTO 0.05 K/mm3 (0.00-0.23); BASOPHILS PERCENT AUTO 0 % (0-2); EOSINOPHILS ABSOLUTE AUTO 0.11 K/mm3 (0.00-0.68); EOSINOPHILS PERCENT AUTO 1 % (0-6); Hematocrit 27.4 % (33.0-51.0); Hemoglobin 8.6 g/dL (11.5-16.0); IMMATURE GRAN ABSOLUTE AUTO 0.07 K/mm3 (0.00-0.10); IMMATURE GRAN PERCENT AUTO 1 % (0-1); LYMPHOCYTES ABSOLUTE AUTO 1.64 K/mm3 (0.84-5.20); LYMPHOCYTES PERCENT AUTO 12 % (21-46); MONOCYTES ABSOLUTE AUTO 0.98 K/mm3 (0.16-1.47); MONOCYTES PERCENT AUTO 7 % (4-13); Mean Corpuscular HGB 28.9 pg (26.0-34.0); Mean Corpuscular HGB Conc 31.4 g/dL (31.5-36.5); Mean Corpuscular Volume 92 fL (80-100); Mean Platelet Volume 10.9 fL (9.1-12.4); NEUTROPHILS ABSOLUTE AUTO 10.64 K/mm3 (1.96-9.15); NEUTROPHILS PERCENT AUTO 79 % (41-73); Platelet Count 206 K/mm3 (150-400); RDW Coefficient Variation 13.4 % (11.7-14.2); RDW Standard Deviation 45.1 fL (35.1-46.3); Red Blood Cell Count 2.98 M/mm3 (3.80-5.20); White Blood Cell Count 13.49 K/mm3 (4.00-11.30)
[2019-11-17 05:48] LABS: Bun/Creatinine Ratio 17.4 (12.0-20.0); Calcium, Blood 7.6 mg/dL (8.5-10.1); Creatinine, Blood 2.7 mg/dL (0.40-1.00); Potassium, Blood 3.6 mmol/L (3.5-5.5)
--- NOTE | 2019-11-17 06:22 | NUR ---
0622 PT BEEN HYPERTENSIVE T/O THIS SHIFT. PROVIDER ANDRES ORDERED APRESILINE W/ LITTLE CHANGE NOTED. WILL PASS ON TO DAY RN TO CALL PT PHARMACY AND CORRECTION TO GET CURRENT MEDICATION LIST. LATASHA.
--- NOTE | 2019-11-17 17:03 | NUR ---
SHIFT SUMMARY PT ALERT AND ORIENTED TO SELF AND LOCATION THIS SHIFT. PT UP TO CHAIR FOR MEALS. PT 1 PERSON ASSIST TO THE BATHROOM THIS SHIFT. CELLULITUS ON THE LLE REDUCED FROM PREVIOUS MARKING. ULTRASOUND AND X-RAY PERFORMED THIS SHIFT ON PT'S LOWER EXTREMETIES. PT TOLERATED WELL. PT SITTING UP IN BED WATCHING TELEVISION.
[2019-11-18 01:47] LABS: Stool Occult Blood Guaiac 1 Neg (Neg)
--- NOTE | 2019-11-18 05:01 | NUR ---
SUMMARY PT HAD A NOTED LARGE BLACK STOOL PROVIDER CALLED AND ORDERED OCCULT STOOL TEST. RESULTS WERE NEGATIVE. PT DENIED ANY PAIN OR DISCOMFORT. PT IS AMBULATING W/ F[facility] WELL. PT IS VOIDING W/ OUT ISSUE. PT REMAINS CONFUSED AND FORGETFUL. PT HAS SLEPT T/O SHIFT. PT CURRENTLY SLEEPING IN NO DISTRESS. CALL LIGHT IN REACH AND BED ALARM ON.
[2019-11-18 05:04] LABS: BASOPHILS ABSOLUTE AUTO 0.04 K/mm3 (0.00-0.23); BASOPHILS PERCENT AUTO 1 % (0-2); EOSINOPHILS ABSOLUTE AUTO 0.22 K/mm3 (0.00-0.68); EOSINOPHILS PERCENT AUTO 3 % (0-6); Hematocrit 29.1 % (33.0-51.0); Hemoglobin 8.9 g/dL (11.5-16.0); IMMATURE GRAN ABSOLUTE AUTO 0.04 K/mm3 (0.00-0.10); IMMATURE GRAN PERCENT AUTO 1 % (0-1); LYMPHOCYTES ABSOLUTE AUTO 1.42 K/mm3 (0.84-5.20); LYMPHOCYTES PERCENT AUTO 17 % (21-46); MONOCYTES ABSOLUTE AUTO 0.74 K/mm3 (0.16-1.47); MONOCYTES PERCENT AUTO 9 % (4-13); Mean Corpuscular HGB 28.3 pg (26.0-34.0); Mean Corpuscular HGB Conc 30.6 g/dL (31.5-36.5); Mean Corpuscular Volume 93 fL (80-100); Mean Platelet Volume 10.5 fL (9.1-12.4); NEUTROPHILS ABSOLUTE AUTO 5.99 K/mm3 (1.96-9.15); NEUTROPHILS PERCENT AUTO 71 % (41-73); Platelet Count 211 K/mm3 (150-400); RDW Coefficient Variation 13.3 % (11.7-14.2); RDW Standard Deviation 45.2 fL (35.1-46.3); Red Blood Cell Count 3.14 M/mm3 (3.80-5.20); White Blood Cell Count 8.45 K/mm3 (4.00-11.30)
[2019-11-18 05:31] LABS: Creatinine, Blood 2.56 mg/dL (0.40-1.00)
[2019-11-18] MEDS ORDERED: CEPH500 PO (14:31)
[2019-11-18] MEDS ORDERED: PROBIOTIC250 MG PO (14:32)
[2019-11-18] MEDS ORDERED: LANTUS SOL100 UNIT/1 SC (14:33)
[2019-11-18] MEDS ORDERED: Acetaminophen325 M1 PO (14:33)
--- NOTE | 2019-11-18 15:32 | NUR ---
PT DISCHARGED. PT DISCHARGED TO [facility], [facility]. BRADLEY UPDATED ON PT DEPARTURE. PT DC PACKET SENT WITH PATIENT. NO CHANGES IN ASSESSMENT PRIOR TO DC. PODIATRY APPOINTMENT MADE FOR VERA PRIOR TO DC. PT TRANSPORTED BY [facility].
== END 2019-11-18 15:25 | disposition home or self-care (01) | DRG 871 ==
LOC: ER 18:58 → MEDS 18:59
PROVIDERS: Emergency Medicine; Internal Medicine; Nurse Practitioner Acute Care; Student in an Organized Health Care Education/Training Program; ADMIT Internal Medicine
DX: A41.9 Sepsis, unspecified organism (principal); G92 Toxic encephalopathy; L03.116 Cellulitis of left lower limb; I96 Gangrene, not elsewhere classified; E11.52 Type 2 diabetes mellitus with diabetic peripheral angiopathy with gangrene; N18.4 Chronic kidney disease, stage 4 (severe); N17.9 Acute kidney failure, unspecified; E66.01 Morbid (severe) obesity due to excess calories; F03.90 Unspecified dementia, unspecified severity, without behavioral disturbance, psychotic disturbance, mood disturbance, and anxiety; I12.9 Hypertensive chronic kidney disease with stage 1 through stage 4 chronic kidney disease, or unspecified chronic kidney disease; E11.22 Type 2 diabetes mellitus with diabetic chronic kidney disease; F32.9 Major depressive disorder, single episode, unspecified; Z20.828 Contact with and (suspected) exposure to other viral communicable diseases; Z68.36 Body mass index [BMI] 36.0-36.9, adult; E78.5 Hyperlipidemia, unspecified; Z86.14 Personal history of Methicillin resistant Staphylococcus aureus infection; I89.0 Lymphedema, not elsewhere classified
CPT/HCPCS: 36415; 51702; 71045; 73630; 80048; 80053; 81001; 82272; 82947; 83605; 85025; 87040; 93005; 93010; 93922; 96365-59; 96366-59; 96367; 96367-59; 96372; 96375-59; 97110; 97116; 97162; 99284-25; A9270; A9270-GY; G0378; J0360; J0690; J0696; J1644; J3370; J7050

== ENCOUNTER → 2019-11-19 | Outpatient (CLI) | payer OTHER ==
[~2019-11-19] MED LIST changes: +AMOX500 PO; +Acetaminophen325 M1 PO; +Aspirin EC81 MG PO; +BISMATROL525 MG/15 PO; +DILT60ER PO; +LANTUS SOL100 UNIT/1 SC; +LOPE2C; +PROBIOTIC250 MG PO; +SERT50 PO
[2019-11-19 13:25] LABS: Source, Urine Clean Catch
[2019-11-19 14:46] LABS: BASOPHILS ABSOLUTE AUTO 0.03 K/mm3 (0.00-0.23); BASOPHILS PERCENT AUTO 0 % (0-2); EOSINOPHILS ABSOLUTE AUTO 0.26 K/mm3 (0.00-0.68); EOSINOPHILS PERCENT AUTO 4 % (0-6); Hematocrit 29.8 % (33.0-51.0); Hemoglobin 8.9 g/dL (11.5-16.0); IMMATURE GRAN ABSOLUTE AUTO 0.02 K/mm3 (0.00-0.10); IMMATURE GRAN PERCENT AUTO 0 % (0-1); LYMPHOCYTES ABSOLUTE AUTO 1.23 K/mm3 (0.84-5.20); LYMPHOCYTES PERCENT AUTO 17 % (21-46); MONOCYTES ABSOLUTE AUTO 0.59 K/mm3 (0.16-1.47); MONOCYTES PERCENT AUTO 8 % (4-13); Mean Corpuscular HGB 27.7 pg (26.0-34.0); Mean Corpuscular HGB Conc 29.9 g/dL (31.5-36.5); Mean Corpuscular Volume 93 fL (80-100); Mean Platelet Volume 11.2 fL (9.1-12.4); NEUTROPHILS ABSOLUTE AUTO 5.19 K/mm3 (1.96-9.15); NEUTROPHILS PERCENT AUTO 71 % (41-73); Platelet Count 266 K/mm3 (150-400); RDW Coefficient Variation 13.2 % (11.7-14.2); RDW Standard Deviation 45.1 fL (35.1-46.3); Red Blood Cell Count 3.21 M/mm3 (3.80-5.20); White Blood Cell Count 7.32 K/mm3 (4.00-11.30)
[2019-11-19 14:52] LABS: Bilirubin, Urine Neg (Neg); Blood, Urine 1+ (Neg); Glucose Qualitative, Urine 2+ (Neg); Ketones, Urine Neg (Neg); Leukocyte Esterase, Urine Neg (Neg); Nitrite, Urine Neg (Neg); Protein, Urine 4+ (Neg); Urobilinogen, Urine NORM (Normal)
[2019-11-19 14:59] LABS: Alanine Aminotransfer (ALT/SGP 10 U/L (12-78); Albumin/Globulin Ratio 0.6 (0.8-1.8); Alk Phos 88 U/L (50-136); Anion Gap 9 mmol/L (6-16); Aspartate Aminotrans (AST/SGOT 16 U/L (12-37); Bilirubin, Direct <0.1 mg/dL (0.0-0.3); Bilirubin, Indirect Unable to Calculate mg/dL (0.1-0.7); Bilirubin, Total 0.2 mg/dL (0.1-1.0); Blood Urea Nitrogen 49 mg/dL (8-24); Bun/Creatinine Ratio 18.7 (12.0-20.0); CO2, Blood 20 mmol/L (21-32); Calcium, Blood 7.9 mg/dL (8.5-10.1); Chloride, Blood 113 mmol/L (98-108); Creatinine, Blood 2.62 mg/dL (0.40-1.00); Globulin, Blood 3.5 g/dL (2.2-4.0); Glomerular Filtration Rate 19 (60-); Glucose, Blood 216 mg/dL (70-99); Magnesium, Blood 2.3 mg/dL (1.6-2.4); Percent Saturation 34.6 % (15.0-50.0); Phosphorus, Blood 4.7 mg/dL (2.5-4.9); Potassium, Blood 4.6 mmol/L (3.5-5.5); Sodium, Blood 142 mmol/L (136-145); Total Protein, Blood 5.5 g/dL (6.4-8.2)
[2019-11-19 15:01] LABS: Albumin, Blood 1.9 g/dL (3.4-5.0); Albumin/Globulin Ratio 0.5 (0.8-1.8); Appearance, Urine Hazy (Clear); Bilirubin, Total 0.2 mg/dL (0.1-1.0); Bun/Creatinine Ratio 18.8 (12.0-20.0); Calcium, Blood 8.1 mg/dL (8.5-10.1); Color, Urine Yellow (P-Yellow); Creatinine, Blood 2.6 mg/dL (0.40-1.00); Globulin, Blood 4.1 g/dL (2.2-4.0); Potassium, Blood 4.3 mmol/L (3.5-5.5)
[2019-11-19 15:02] LABS: Bacteria Mod /hpf; Squamous Epithelial Cells Few /hpf (Few); Transitional Epithelial Cells Few /hpf (0-Rare); White Blood Cells, Urine 0-2 /hpf (0-5)
[2019-11-19 15:03] LABS: Renal Epithelial Few /hpf (0-Rare)
== END | disposition home or self-care (01) ==
LOC: LAB SHORT 13:13 → LAB 13:13
PROVIDERS: Internal Medicine; Internal Medicine Nephrology
DX: D50.9 Iron deficiency anemia, unspecified (principal); E11.22 Type 2 diabetes mellitus with diabetic chronic kidney disease; E11.21 Type 2 diabetes mellitus with diabetic nephropathy; I12.9 Hypertensive chronic kidney disease with stage 1 through stage 4 chronic kidney disease, or unspecified chronic kidney disease; N18.4 Chronic kidney disease, stage 4 (severe); D63.1 Anemia in chronic kidney disease; E55.9 Vitamin D deficiency, unspecified; R60.0 Localized edema
CPT/HCPCS: 80053; 81001; 82248; 82306; 82728; 83036; 83540; 83550; 83735; 83880; 83970; 84100; 85025; 87086

== ENCOUNTER 2019-12-07 20:29 | Inpatient (IN) | payer OTHER ==
[~2019-12-07] VITALS: Ht 170.2 cm; Wt 132.3 kg
[~2019-12-07 20:29] MED LIST changes: -AMOX500 PO; -BISMATROL525 MG/15 PO; -DILT60ER PO; -LOPE2C; -SERT50 PO
[2019-12-07 20:57] LABS: BASOPHILS ABSOLUTE AUTO 0.06 K/mm3 (0.00-0.23); BASOPHILS PERCENT AUTO 0 % (0-2); EOSINOPHILS ABSOLUTE AUTO 0.04 K/mm3 (0.00-0.68); EOSINOPHILS PERCENT AUTO 0 % (0-6); Hematocrit 27.7 % (33.0-51.0); Hemoglobin 8.5 g/dL (11.5-16.0); IMMATURE GRAN ABSOLUTE AUTO 0.13 K/mm3 (0.00-0.10); IMMATURE GRAN PERCENT AUTO 1 % (0-1); LYMPHOCYTES ABSOLUTE AUTO 0.96 K/mm3 (0.84-5.20); LYMPHOCYTES PERCENT AUTO 4 % (21-46); MONOCYTES ABSOLUTE AUTO 0.64 K/mm3 (0.16-1.47); MONOCYTES PERCENT AUTO 3 % (4-13); Mean Corpuscular HGB 28.5 pg (26.0-34.0); Mean Corpuscular HGB Conc 30.7 g/dL (31.5-36.5); Mean Corpuscular Volume 93 fL (80-100); Mean Platelet Volume 10.4 fL (9.1-12.4); NEUTROPHILS ABSOLUTE AUTO 20.07 K/mm3 (1.96-9.15); NEUTROPHILS PERCENT AUTO 92 % (41-73); Platelet Count 252 K/mm3 (150-400); RDW Coefficient Variation 13.4 % (11.7-14.2); RDW Standard Deviation 46.3 fL (35.1-46.3); Red Blood Cell Count 2.98 M/mm3 (3.80-5.20)
[2019-12-07 21:14] LABS: Albumin, Blood 2.2 g/dL (3.4-5.0); Albumin/Globulin Ratio 0.5 (0.8-1.8); Bilirubin, Total 0.2 mg/dL (0.1-1.0); Bun/Creatinine Ratio 14.9 (12.0-20.0); Calcium, Blood 7.8 mg/dL (8.5-10.1); Creatinine, Blood 2.69 mg/dL (0.40-1.00); Globulin, Blood 4.4 g/dL (2.2-4.0); Potassium, Blood 4.5 mmol/L (3.5-5.5); Total Protein, Blood 6.6 g/dL (6.4-8.2)
[2019-12-07 21:34] LABS: International Normalized Ratio 1.09; Prothrombin Time Results 11.6 Sec (9.7-11.5)
[2019-12-07 22:14] LABS: Source, Urine Catheter
[2019-12-07 22:15] LABS: Appearance, Urine Hazy (Clear); Bilirubin, Urine Neg (Neg); Blood, Urine 2+ (Neg); Color, Urine Yellow (P-Yellow); Glucose Qualitative, Urine 3+ (Neg); Ketones, Urine Neg (Neg); Leukocyte Esterase, Urine Neg (Neg); Nitrite, Urine Neg (Neg); Protein, Urine 4+ (Neg); Specific Gravity, Urine 1.015 (1.003-1.022); Urobilinogen, Urine NORM (Normal)
[2019-12-07 22:24] LABS: Amorphous Mod (0-Heavy); Bacteria Few /hpf; Red Blood Cells, Urine 0-2 /hpf (0-2); Squamous Epithelial Cells Not Seen /hpf (Few)
[2019-12-07] MEDS ORDERED: ALEN70 PO (22:50)
[2019-12-07] MEDS ORDERED: FURO20 PO (22:51)
[2019-12-07] MEDS ORDERED: CARV6.25 PO (22:51)
[2019-12-07] MEDS ORDERED: BISMATROL525 MG/15 PO (22:51)
[2019-12-07] MEDS ORDERED: MEMA10 PO (22:52)
[2019-12-07] MEDS ORDERED: LOPE2C (22:52)
[2019-12-07] MEDS ORDERED: DILT60ER PO (22:52)
[2019-12-07] MEDS ORDERED: POTCHL20ER PO (22:53)
[2019-12-07] MEDS ORDERED: SERT50 PO (22:54)
[2019-12-07] MEDS ORDERED: OLAN10 PO (22:54)
[2019-12-08] MEDS ORDERED: ONDA4 PO (00:54)
--- NOTE | 2019-12-08 01:05 | NUR ---
ASSUMED CARE OF PATIENT AT APPROXIMATELY 0000 FROM ED SANJU MURILLO. PATIENT ARRIVED TO UNIT VIA STRETCHER; TRANSFER FROM ED TO PCU STRETCHER WITH LIFT AND MAX ASSIST. PATIENT HAS LEG CELLULITIS AND WEAKNESS. PATIENT ALERT BUT CONFUSED; DEMENTIA HX. PATIENT ABLE TO STATE NAME AND OCCASIONALLY; STATED YEAR WAS 2011. PATIENT PULLS AT LINES/CORDS AND MOVES CALL LIGHT AND ITEMS ON BEDSIDE TABLE AROUND. PATIENT REPORTS NUMBNESS AND TINGLING IN HANDS AND FEET. PATIENT DENIES PAIN, DIZZINESS OR NAUSEA. ADMISSION COMLETE. MRSA CLEARING SWABS SENT. URINARY CATH PATENT. NSR ON TELE; OXYGEN SATURATION ABOVE 90% ON LPM VIA NC; WAS ON 4LPM UPON ARRIVAL TO UNIT. IVF INFUSING PER ORDER. PATIENT CURRENTLY RESTING IN BED; CALL LIGHT IN REACH; BED IN LOWEST POSISTION BED ALARM ON; WILL CONTINUE TO MONITOR AND ASSESS UNTIL END OF SHIFT.
[2019-12-08 01:57] LABS: Adenovirus Not Detected (NOT DETECT); Bordetella pertussis Not Detected (NOT DETECT); Chlamydophila pneumoniae Not Detected (NOT DETECT); Coronavirus 229E Not Detected (NOT DETECT); Coronavirus HKU1 Not Detected (NOT DETECT); Coronavirus NL63 Not Detected (NOT DETECT); Coronavirus OC43 Not Detected (NOT DETECT); Human Metapneumovirus Not Detected (NOT DETECT); Human Rhinovirus/Enterovirus Not Detected (NOT DETECT); Influenza A/2009-H1 Not Detected (NOT DETECT); Influenza A/H1 Not Detected (NOT DETECT); Influenza A/H3 Not Detected (NOT DETECT); Influenza B Not Detected (NOT DETECT); Mycoplasma pneumoniae Not Detected (NOT DETECT); Parainfluenza Virus 1 Not Detected (NOT DETECT); Parainfluenza Virus 2 Not Detected (NOT DETECT); Parainfluenza Virus 3 Not Detected (NOT DETECT); Parainfluenza Virus 4 Not Detected (NOT DETECT); Respiratory Syncytial Virus Not Detected (NOT DETECT)
[2019-12-08 06:04] LABS: BASOPHILS ABSOLUTE AUTO 0.04 K/mm3 (0.00-0.23); BASOPHILS PERCENT AUTO 0 % (0-2); EOSINOPHILS ABSOLUTE AUTO 0.06 K/mm3 (0.00-0.68); EOSINOPHILS PERCENT AUTO 0 % (0-6); Hematocrit 24.6 % (33.0-51.0); Hemoglobin 7.6 g/dL (11.5-16.0); IMMATURE GRAN ABSOLUTE AUTO 0.07 K/mm3 (0.00-0.10); IMMATURE GRAN PERCENT AUTO 0 % (0-1); LYMPHOCYTES ABSOLUTE AUTO 1.39 K/mm3 (0.84-5.20); LYMPHOCYTES PERCENT AUTO 9 % (21-46); MONOCYTES ABSOLUTE AUTO 0.89 K/mm3 (0.16-1.47); MONOCYTES PERCENT AUTO 6 % (4-13); Mean Corpuscular HGB 28.9 pg (26.0-34.0); Mean Corpuscular HGB Conc 30.9 g/dL (31.5-36.5); Mean Corpuscular Volume 94 fL (80-100); Mean Platelet Volume 10.4 fL (9.1-12.4); NEUTROPHILS ABSOLUTE AUTO 13.71 K/mm3 (1.96-9.15); NEUTROPHILS PERCENT AUTO 85 % (41-73); Platelet Count 202 K/mm3 (150-400); RDW Coefficient Variation 13.5 % (11.7-14.2); RDW Standard Deviation 45.8 fL (35.1-46.3); Red Blood Cell Count 2.63 M/mm3 (3.80-5.20); White Blood Cell Count 16.16 K/mm3 (4.00-11.30)
--- NOTE | 2019-12-08 06:14 | NUR ---
PATIENT SLEPT ABOUT FOUR HOURS LAST NIGHT. OXYGEN TITRATED DOWN TO 1LPM VIA NC. VSS. WILL CONTINUE TO MONITOR AND ASSESS UNTIL END OF SHIFT.
[2019-12-08 06:29] LABS: Albumin/Globulin Ratio 0.5 (0.8-1.8); Bilirubin, Total 0.2 mg/dL (0.1-1.0); Bun/Creatinine Ratio 15.4 (12.0-20.0); Calcium, Blood 7.3 mg/dL (8.5-10.1); Creatinine, Blood 2.66 mg/dL (0.40-1.00); Globulin, Blood 3.7 g/dL (2.2-4.0); Potassium, Blood 4.2 mmol/L (3.5-5.5); Total Protein, Blood 5.7 g/dL (6.4-8.2)
--- NOTE | 2019-12-08 08:46 | NUR ---
pt laying in bed eating breakfast, awake alert, oriented to self, and place, pleasant and cooperative with care, follows commands, denies complaints, doesn't know how she is doing, lungs are clear t/o, on 2 liters 02 via n/c, resp even and unlabored, no cough noted, hrr, tele in place, running sr per monitor, see strip, 4+edema noted to b/l le, left le is pink, iv site is clear and patent, btx4, abd flat soft nontender, tamayo cath draining yellow urine, skin c/w/d, except left lower ext is pink, nigel damian, call light in reach.
[2019-12-08 11:06] LABS: Percent Saturation 9.2 % (15.0-50.0)
--- NOTE | 2019-12-08 13:42 | NUR ---
pt is medical status, will be sending her to medical floor, report was given to recieving nurse. will take via bed with all belongings.
--- NOTE | 2019-12-08 14:24 | NUR ---
RECIEVED REPORT FROM [employer]SE[employer] FOOD SERVICE AIDE. PATIENT TRANSFERED FROM PCU 10 TO ROOM 364.
--- NOTE | 2019-12-08 16:23 | NUR ---
PATIENT TRANSFERED TO THIS FLOOR THIS AFTERNOON AND MUST BE EXHAUSTED. SHE HAS SLEPT THE ENTIRE TIME. SHE IS PLEASANT AND COOPERATIVE THE SHORT TIMES SHE IS AWAKE. VITALS ARE STABLE.
--- NOTE | 2019-12-08 19:37 | NUR ---
AWAKE, VOICED FELT COLD, WARMED BLANKET APPLIED. VOICED APPRECIATION. WILL MONITOR
--- NOTE | 2019-12-08 21:40 | NUR ---
"TIA" FROM '[facility]' CALLED RE PT STATUS. PT VOICED AGREEMENT TO LET ME TALK TO HER. TIA ASKED STATUS. TIA VOICED THAT THEY WERE TAKING CARE OF HER THERE AND PT HAD DEMENTIA. TIA NOTIFIED THAT SHE HAD BEEN TRANSFERRED TO MEDICAL UNIT FROM THE PCU AND THAT SHE WAS ON ANTIBIOTICS. TIA VOICED SHE HAD BEEN IN THE NOSPITAL RECENTLY AND WAS ON ANTIBIOTICS THEN WELL. CALL WAS CUT SHORT DUE TO PT NEEDS.
[2019-12-09 04:56] LABS: BASOPHILS ABSOLUTE AUTO 0.03 K/mm3 (0.00-0.23); BASOPHILS PERCENT AUTO 0 % (0-2); EOSINOPHILS ABSOLUTE AUTO 0.31 K/mm3 (0.00-0.68); EOSINOPHILS PERCENT AUTO 3 % (0-6); Hematocrit 24.5 % (33.0-51.0); Hemoglobin 7.4 g/dL (11.5-16.0); IMMATURE GRAN ABSOLUTE AUTO 0.06 K/mm3 (0.00-0.10); IMMATURE GRAN PERCENT AUTO 1 % (0-1); LYMPHOCYTES ABSOLUTE AUTO 1.62 K/mm3 (0.84-5.20); LYMPHOCYTES PERCENT AUTO 14 % (21-46); MONOCYTES PERCENT AUTO 8 % (4-13); Mean Corpuscular HGB 28.7 pg (26.0-34.0); Mean Corpuscular HGB Conc 30.2 g/dL (31.5-36.5); Mean Corpuscular Volume 95 fL (80-100); Mean Platelet Volume 11.3 fL (9.1-12.4); NEUTROPHILS ABSOLUTE AUTO 8.49 K/mm3 (1.96-9.15); NEUTROPHILS PERCENT AUTO 74 % (41-73); Platelet Count 200 K/mm3 (150-400); RDW Coefficient Variation 13.5 % (11.7-14.2); Red Blood Cell Count 2.58 M/mm3 (3.80-5.20); White Blood Cell Count 11.41 K/mm3 (4.00-11.30)
[2019-12-09 05:19] LABS: Albumin, Blood 1.7 g/dL (3.4-5.0); Albumin/Globulin Ratio 0.4 (0.8-1.8); Bilirubin, Total 0.2 mg/dL (0.1-1.0); Bun/Creatinine Ratio 13.5 (12.0-20.0); Calcium, Blood 7.7 mg/dL (8.5-10.1); Creatinine, Blood 2.88 mg/dL (0.40-1.00); Globulin, Blood 3.9 g/dL (2.2-4.0); Potassium, Blood 4.6 mmol/L (3.5-5.5); Total Protein, Blood 5.6 g/dL (6.4-8.2)
--- NOTE | 2019-12-09 05:45 | NUR ---
SHIFT SUMMARY AWAKE A FEW TIMES THIS SHIFT. ONCE FOR VOICED NEED TO USE BEDPAN, BUT AFTER ASSISTED WITH IT, STATED SHE WAS MISTAKEN AND WOULD TRY AGAIN LATER. REPOSITIONED WITH USE OF LIFT. SAAVEDRA DRAINING. CALL LIGHT IN REACH. RAILS UP X 3. RESTING QUIETLY AT THIS TIME.
--- NOTE | 2019-12-09 17:23 | NUR ---
Provided prayer and assurance of care to Mrs. Gamboa. She said very little, but smiled easily. She did not appear able to engage in meaningful conversation. she was appreciaitve of companioship and prayer. I will remain available.
--- NOTE | 2019-12-09 17:36 | NUR ---
SHIFT SUMMARY PT IS A&OX3. DURING SHIFT PT WILL BELEIVE SHE NEEDS TO GO PEE AND WILL MOVE LEGS OFF BED IN AN EFFORT TO GET UP. PT HAS A SAAVEDRA IN PLACE AND WILL BE REMINDED OF SUCH. PT IS STRONG AND IS ABLE TO MOVE AOUND IN BED WITH LITTLE ASSISTANCE. PT IS A AB TRANSFER. WAS UP IN A CHAIR DURING LUNCH. PT FRIENDLY WILL NEED TO BE REMINDED ABOUT SAAVEDRA. PT DENIES N/V. PT HAS SWELLING IN BOTH LEGS. RIGHT BIG TOE HAS DIABETIC ULCER. LEFT LEG IS RED AND WARM TO THE TOUCH ON THE CALF. PT IS CURENTLY WATCHING TV IN BED.
--- NOTE | 2019-12-10 04:39 | NUR ---
SHIFT SUMMARY HAS BEEN RESTING QUIETLY WITH FEW INTERRUPTIONS SINCE HS. HOB ELEVATED FOR COMFORT. SAAVEDRA DRAINING. REPOSITIONED USING LIFT. BLE REMAIN SWOLLEN. CALL LIGHT IN REACH. RAILS UP X 3.
--- NOTE | 2019-12-10 05:58 | NUR ---
WHEN ROUNDING AND CHANGINGPT, NOTED PT HAD PULLED OUT IV. NO NOTEDPOTENTIAL IV SITE FOR ANOTHER IV. WILL HAVE AM NURSE FOLLOW UP. CALL LIGHT IN REACH
[2019-12-10 08:52] LABS: Bun/Creatinine Ratio 14.5 (12.0-20.0); Creatinine, Blood 2.69 mg/dL (0.40-1.00); Potassium, Blood 4.7 mmol/L (3.5-5.5)
[2019-12-10 11:02] LABS: BASOPHILS ABSOLUTE AUTO 0.03 K/mm3 (0.00-0.23); BASOPHILS PERCENT AUTO 0 % (0-2); EOSINOPHILS ABSOLUTE AUTO 0.01 K/mm3 (0.00-0.68); EOSINOPHILS PERCENT AUTO 0 % (0-6); Hematocrit 26.7 % (33.0-51.0); IMMATURE GRAN ABSOLUTE AUTO 0.03 K/mm3 (0.00-0.10); IMMATURE GRAN PERCENT AUTO 0 % (0-1); LYMPHOCYTES ABSOLUTE AUTO 0.63 K/mm3 (0.84-5.20); LYMPHOCYTES PERCENT AUTO 6 % (21-46); MONOCYTES PERCENT AUTO 3 % (4-13); Mean Corpuscular HGB 28.4 pg (26.0-34.0); Mean Corpuscular Volume 95 fL (80-100); Mean Platelet Volume 11.4 fL (9.1-12.4); NEUTROPHILS ABSOLUTE AUTO 10.09 K/mm3 (1.96-9.15); NEUTROPHILS PERCENT AUTO 91 % (41-73); Platelet Count 221 K/mm3 (150-400); RDW Coefficient Variation 13.2 % (11.7-14.2); Red Blood Cell Count 2.82 M/mm3 (3.80-5.20); White Blood Cell Count 11.09 K/mm3 (4.00-11.30)
[2019-12-10] MEDS ORDERED: AMOX500 PO (15:22)
--- NOTE | 2019-12-10 16:51 | NUR ---
DISCHARGE 1620 PT DISCHARGED TO [facility]. TRANSPORTATION PROVIDED BY [facility] PT IS A&OX2 TO PERSON AND PLACE. PT WAS IN GOOD SPIRTS WHEN LEAVING THE UNIT. PT REMOVED HER OWN IV DURING THE INSURANCE CLAIMS SPECIALIST. PT WAS FOUND EARLIER IN THE SHIFT WALKING THE [place]O AND ESCORTED BACK TO BED BY RN. DISCHARGE PAPERWORK GIVEN TO PSYCHOLOGICAL ASSISTANT TO GIVE TO DELIVER TO CARE FACILITY. PT DID NOT COMPLAIN OF N,V,P AT TIME OF DISCHARGE. PT TRANSFERED TO WHEELCHAIR WITH STAND BY ASSISTANCE FROM RN. PRIOR TO DISCHARGE ANKIT BOWSER RN SPOKE WITH CAREGIVER ON THE PHONE.
== END 2019-12-10 16:22 | disposition home or self-care (01) | DRG 871 ==
LOC: ER 20:29 → PCU 23:48 → MEDS 12-08 14:04
PROVIDERS: Emergency Medicine; Family Medicine; Hospitalist; ADMIT Internal Medicine
DX: A41.9 Sepsis, unspecified organism (principal); J18.9 Pneumonia, unspecified organism; I13.0 Hypertensive heart and chronic kidney disease with heart failure and stage 1 through stage 4 chronic kidney disease, or unspecified chronic kidney disease; I50.32 Chronic diastolic (congestive) heart failure; N18.4 Chronic kidney disease, stage 4 (severe); L03.116 Cellulitis of left lower limb; N17.9 Acute kidney failure, unspecified; Z68.43 Body mass index [BMI] 50.0-59.9, adult; E11.22 Type 2 diabetes mellitus with diabetic chronic kidney disease; E78.5 Hyperlipidemia, unspecified; D63.1 Anemia in chronic kidney disease; F03.90 Unspecified dementia, unspecified severity, without behavioral disturbance, psychotic disturbance, mood disturbance, and anxiety; F32.9 Major depressive disorder, single episode, unspecified; I16.0 Hypertensive urgency; M81.0 Age-related osteoporosis without current pathological fracture; E86.0 Dehydration; E11.65 Type 2 diabetes mellitus with hyperglycemia; Z79.4 Long term (current) use of insulin; E66.9 Obesity, unspecified
CPT/HCPCS: 0099U; 36415; 51702; 71045; 80048; 80053; 81001; 82607; 82728; 82746; 82947; 83540; 83550; 83605; 83880; 85025; 85610; 85730; 87040; 87081; 87086; 93005; 93010; 93971; 94640; 96365-59; 99285-25; A9270; A9270-GY; J0360; J0690; J0696; J1644; J1956; J7030; J7120

== ENCOUNTER 2020-01-03 21:41 | Inpatient (IN) | payer OTHER ==
[~2020-01-03] VITALS: Ht 172.7 cm; Wt 129.9 kg
[~2020-01-03 21:41] MED LIST changes: +AMOX500 PO; +BISMATROL525 MG/15 PO; +DILT60ER PO; +SERT50 PO
[2020-01-03 22:10] LABS: BASOPHILS ABSOLUTE AUTO 0.03 K/mm3 (0.00-0.23); BASOPHILS PERCENT AUTO 0 % (0-2); EOSINOPHILS ABSOLUTE AUTO 0.01 K/mm3 (0.00-0.68); EOSINOPHILS PERCENT AUTO 0 % (0-6); Hematocrit 30.9 % (33.0-51.0); Hemoglobin 9.4 g/dL (11.5-16.0); IMMATURE GRAN ABSOLUTE AUTO 0.21 K/mm3 (0.00-0.10); IMMATURE GRAN PERCENT AUTO 1 % (0-1); LYMPHOCYTES ABSOLUTE AUTO 0.71 K/mm3 (0.84-5.20); LYMPHOCYTES PERCENT AUTO 4 % (21-46); MONOCYTES ABSOLUTE AUTO 0.58 K/mm3 (0.16-1.47); MONOCYTES PERCENT AUTO 3 % (4-13); Mean Corpuscular HGB 28.1 pg (26.0-34.0); Mean Corpuscular HGB Conc 30.4 g/dL (31.5-36.5); Mean Corpuscular Volume 92 fL (80-100); Mean Platelet Volume 10.1 fL (9.1-12.4); NEUTROPHILS ABSOLUTE AUTO 17.67 K/mm3 (1.96-9.15); NEUTROPHILS PERCENT AUTO 92 % (41-73); Platelet Count 223 K/mm3 (150-400); RDW Coefficient Variation 15.3 % (11.7-14.2); RDW Standard Deviation 51.2 fL (35.1-46.3); Red Blood Cell Count 3.35 M/mm3 (3.80-5.20); White Blood Cell Count 19.21 K/mm3 (4.00-11.30)
[2020-01-03 22:35] LABS: Alanine Aminotransfer (ALT/SGP 18 U/L (12-78); Albumin, Blood 1.7 g/dL (3.4-5.0); Albumin/Globulin Ratio 0.4 (0.8-1.8); Alk Phos 102 U/L (50-136); Anion Gap 11 mmol/L (6-16); Aspartate Aminotrans (AST/SGOT 24 U/L (12-37); Bilirubin, Total 0.2 mg/dL (0.1-1.0); Blood Urea Nitrogen 43 mg/dL (8-24); Bun/Creatinine Ratio 15.3 (12.0-20.0); CO2, Blood 20 mmol/L (21-32); Calcium, Blood 7.2 mg/dL (8.5-10.1); Chloride, Blood 111 mmol/L (98-108); Creatinine, Blood 2.81 mg/dL (0.40-1.00); Globulin, Blood 4.6 g/dL (2.2-4.0); Glomerular Filtration Rate 18 (60-); Glucose, Blood 353 mg/dL (70-99); Sodium, Blood 142 mmol/L (136-145); Total Protein, Blood 6.3 g/dL (6.4-8.2)
[2020-01-04] MEDS ORDERED: TRAM50 PO (01:50)
[2020-01-04 04:55] LABS: BASOPHILS ABSOLUTE AUTO 0.04 K/mm3 (0.00-0.23); BASOPHILS PERCENT AUTO 0 % (0-2); EOSINOPHILS PERCENT AUTO 0 % (0-6); Hematocrit 27.6 % (33.0-51.0); Hemoglobin 8.3 g/dL (11.5-16.0); IMMATURE GRAN ABSOLUTE AUTO 0.19 K/mm3 (0.00-0.10); IMMATURE GRAN PERCENT AUTO 1 % (0-1); LYMPHOCYTES ABSOLUTE AUTO 0.95 K/mm3 (0.84-5.20); LYMPHOCYTES PERCENT AUTO 5 % (21-46); MONOCYTES ABSOLUTE AUTO 0.78 K/mm3 (0.16-1.47); MONOCYTES PERCENT AUTO 4 % (4-13); Mean Corpuscular HGB 28.1 pg (26.0-34.0); Mean Corpuscular HGB Conc 30.1 g/dL (31.5-36.5); Mean Corpuscular Volume 94 fL (80-100); Mean Platelet Volume 10.5 fL (9.1-12.4); NEUTROPHILS ABSOLUTE AUTO 19.34 K/mm3 (1.96-9.15); NEUTROPHILS PERCENT AUTO 91 % (41-73); Platelet Count 238 K/mm3 (150-400); RDW Coefficient Variation 15.4 % (11.7-14.2); RDW Standard Deviation 52.3 fL (35.1-46.3); Red Blood Cell Count 2.95 M/mm3 (3.80-5.20)
[2020-01-04 05:14] LABS: Bun/Creatinine Ratio 14.7 (12.0-20.0); Calcium, Blood 7.3 mg/dL (8.5-10.1); Creatinine, Blood 3.07 mg/dL (0.40-1.00)
--- NOTE | 2020-01-04 06:42 | NUR ---
SHIFT SUMMARY PT NEW ED ADMIT THIS EVENING. PT COMES FROM AN [facility]. BLE CELLULITIS. PT ALSO HAS A WOUND ON R GREAT TOE. PICTURES TAKEN AND PLACED IN CHART. PT HAS HX OF DEMENTIA. ALERT TO SELF ONLY. INCONTINENT. ATTENDS IN PLACE. PT SLEPT WELL THIS EVENING. DID NOT ATTEMPT TO GET OOB BUT BED ALARM PLACED FOR SAFETY. PT HAS HX OF MARKY WITH NONCOMPLIANCE OF CPAP. PT PLACED ON 2 L O2 NC THIS AM DUE TO O2 SATS BEING IN THE MID 80'S INTERMITTENTLY. CONT BIOX ON. NO COMPLAINTS OF PAIN. VITAL SIGNS STABLE. WILL CONTINUE TO MONITOR AND REPORT TO DAY RN.
--- NOTE | 2020-01-04 09:05 | NUR ---
PT PLEASANT COOP FOLLOWS COMMANDS. CONFUSED ON DATE, 2010, PRESIDENT NELA, STATES NOT NOW, BUT WAS X2, STATES NO CHILDREN. CALLED HALF-WAY, THEY INDICATE SHE WILL ANSWER QUESTIONS BUT IS CONFUSED. FORGOT HOW TO WALK 2 DAYS AGO. THEY STATE SUSPECT FROM INFECTION. NORMALLY QUITE PLEASANTLY CONFUSED. H/R REG, HAN NOTED. NO TELE. LUNGS CLEAR, RESP EASY, UNLABORED,ON 2L L2. BT X4 LAST BM YEST PER PT/ VOIDS INCONT. TURNING Q2 AT THIS TIME. BED IN LOW POSITION,C ALL LITE IN REACH, BED ALARM ON FOR SAFETY
--- NOTE | 2020-01-04 17:10 | NUR ---
PT PLEASANTLY CONFUSED TODAY. ANSWERS QUESTIONS, BUT NOT ALWAYS TRUE CORRECT INFO. PT RETAINING 700 CC URINE THIS AFT. PER SCAN. OFFERING BEDPAN. NO RESULT. OFFERED BSC. NO RESULT. CALLED DR STARK. OKAYED STRAIGHT CATH AND MONITOR. NO NEW CONCERNS AT THIS TIME. BED IN LOW POSITION, CALL LITE IN REACH, BED ALARM ONFOR SAFETY
--- NOTE | 2020-01-04 18:07 | NUR ---
CALLED DR STARK FOR PT RETENTION OF >700 CC URINE. PT NOT URINATED T/O DAY. OKAYED ORDER FOR STRAIGHT CATH PRN. STRAIGHT CATH PERFORMED WITH OFELIA BILLS. STERILE TECHNIQUE MAINTAINED. 800 CC DRAINED. PT ISRAEL WELL. REPLACED ATTENDS ON PT.
[2020-01-05 04:43] LABS: BASOPHILS ABSOLUTE AUTO 0.03 K/mm3 (0.00-0.23); BASOPHILS PERCENT AUTO 0 % (0-2); EOSINOPHILS ABSOLUTE AUTO 0.42 K/mm3 (0.00-0.68); EOSINOPHILS PERCENT AUTO 3 % (0-6); Hematocrit 27.6 % (33.0-51.0); Hemoglobin 8.3 g/dL (11.5-16.0); IMMATURE GRAN ABSOLUTE AUTO 0.07 K/mm3 (0.00-0.10); IMMATURE GRAN PERCENT AUTO 1 % (0-1); LYMPHOCYTES ABSOLUTE AUTO 1.57 K/mm3 (0.84-5.20); LYMPHOCYTES PERCENT AUTO 10 % (21-46); MONOCYTES ABSOLUTE AUTO 0.96 K/mm3 (0.16-1.47); MONOCYTES PERCENT AUTO 6 % (4-13); Mean Corpuscular HGB 27.9 pg (26.0-34.0); Mean Corpuscular HGB Conc 30.1 g/dL (31.5-36.5); Mean Corpuscular Volume 93 fL (80-100); Mean Platelet Volume 10.2 fL (9.1-12.4); NEUTROPHILS ABSOLUTE AUTO 12.45 K/mm3 (1.96-9.15); NEUTROPHILS PERCENT AUTO 80 % (41-73); Platelet Count 249 K/mm3 (150-400); RDW Coefficient Variation 15.4 % (11.7-14.2); RDW Standard Deviation 52.2 fL (35.1-46.3); Red Blood Cell Count 2.97 M/mm3 (3.80-5.20)
[2020-01-05 05:01] LABS: Bun/Creatinine Ratio 14.9 (12.0-20.0); Calcium, Blood 7.5 mg/dL (8.5-10.1); Creatinine, Blood 3.56 mg/dL (0.40-1.00)
--- NOTE | 2020-01-05 06:10 | NUR ---
GOVERNMENT RELATIONS ANALYST SUMMARY Patient alert and pleasantly confused. Unable to void on the commode despite 2 tries. At 0530, patient had a very large incont void in her brief and was then scanned for a 219ml PVR. Legs 3+ edema, rash bilat on shins. Left greater than Right. Also, Left cruz has tiny vesicles within the rash. No complaints of discomfort overnight. No difficulty wearing nasal cannula overnight.
--- NOTE | 2020-01-05 09:00 | NUR ---
PT PLEASANTLY CONFUSED. UNABLE TO TELL ME DATE OR WHKER SHE IS OR PRESIDENT. IS ABLE TO TELL ME HER . JUST STATES OLD WHEN ASKED FOR AGE. DENIES PAIN AT THIS TIME. H/R REG, HAN NOTED. NO TELE. LUNGS CLEAR, RESP EASY, UNLABORED. ON 2L O2. BT X4 LAST BM UNKNOWN. VOIDS 2 ASST TO BSC. BUT FREQUENTLY INCONT. LITTLE VOIDS. IN ATTENDS AT THIS TIME. BED IN LOW POSITION, YANN GAN IN [facility], BED ALARM ON FOR SAFETY
--- NOTE | 2020-01-05 16:37 | NUR ---
PT CONTINUES TO BE PLEASANT AND CONFUSED TODAY. DID GET TO BSC TWICE TODAY. DID WELL WITH 2 ASST. MODERATE ASST. NO NEW CONCERNS AT THIS TIME. ABX CONTINUES FOR CELLULITIS. BED IN LOW POSITION, CALL LITE IN REACH, BED ALARM ON FOR SAFETY
[2020-01-06 05:15] LABS: BASOPHILS ABSOLUTE AUTO 0.05 K/mm3 (0.00-0.23); BASOPHILS PERCENT AUTO 0 % (0-2); EOSINOPHILS ABSOLUTE AUTO 0.53 K/mm3 (0.00-0.68); EOSINOPHILS PERCENT AUTO 5 % (0-6); Hemoglobin 8.3 g/dL (11.5-16.0); IMMATURE GRAN ABSOLUTE AUTO 0.04 K/mm3 (0.00-0.10); IMMATURE GRAN PERCENT AUTO 0 % (0-1); LYMPHOCYTES PERCENT AUTO 9 % (21-46); MONOCYTES ABSOLUTE AUTO 0.66 K/mm3 (0.16-1.47); MONOCYTES PERCENT AUTO 6 % (4-13); Mean Corpuscular HGB 27.5 pg (26.0-34.0); Mean Corpuscular HGB Conc 29.6 g/dL (31.5-36.5); Mean Corpuscular Volume 93 fL (80-100); Mean Platelet Volume 10.3 fL (9.1-12.4); NEUTROPHILS ABSOLUTE AUTO 8.89 K/mm3 (1.96-9.15); NEUTROPHILS PERCENT AUTO 80 % (41-73); NRBC ABSOLUTE 0.02 K/mm3 (0.00-0.02); NRBC Auto 0.2 /100 WBC (0.0-0.2); Platelet Count 273 K/mm3 (150-400); RDW Coefficient Variation 15.4 % (11.7-14.2); RDW Standard Deviation 52.5 fL (35.1-46.3); Red Blood Cell Count 3.02 M/mm3 (3.80-5.20); White Blood Cell Count 11.17 K/mm3 (4.00-11.30)
[2020-01-06 05:39] LABS: Bun/Creatinine Ratio 14.5 (12.0-20.0); Calcium, Blood 7.8 mg/dL (8.5-10.1); Creatinine, Blood 3.52 mg/dL (0.40-1.00)
--- NOTE | 2020-01-06 05:46 | NUR ---
MOP WORKER SUMMARY Patient very pleasantly confused overnight. Slept probably half the night, waking hourly and calling out for help, then she would ask us "what am I supposed to do?". As soon as we told her time for sleep, she'd say thank you and go right back to sleep for another hour. Medicated once for leg and foot pain with tylenol, we also elevated her legs and dangled her feet off the pillow to float her heels. 2 large incont voids
[2020-01-06 10:19] LABS: International Normalized Ratio 1.12; Prothrombin Time Results 11.9 Sec (9.7-11.5)
--- NOTE | 2020-01-06 11:40 | NUR ---
NOTIFIED [facility] AT [phone] OF UPDATE--PODIATRY CONSULT. APRIL STS PATIENT HAS HAD SORE ON RT GREAT TOE SINCE BEING AT HOME FOR 1.5 YEARS. STS; SUNDOWNERS AT 3PM, EASILY DIRECTABLE, USES 4FWW AT HOME BUT HAS SEVERE DEMENTIA AND CAN FORGET LIKE HOW TO WALK OR USE BATHROOM. ANSWER ANY QUESTIONS.
--- NOTE | 2020-01-06 16:05 | NUR ---
PAL CARE INITIAL VISIT - PAL CARE referral received for clarification of goals of care, code status, advanced care planning and identification of a surrogate decision maker if pt unable to make decisions for herself re: ongoing renal care and treatments. Pt is a 69 year old diabetic, admitted for Nevaeh LE cellulites and sepsis. She has acute on chronic renal impairment, stage IV. Her renal function has diclined significantly over the past year. Jessica has long hx of dementia. When I went to see her she was attempting to swing her very large, edematous, angry appearing legs over the side of the bed to get up without assist. She does not appear able to sit or stand up without significant help. I assisted her in getting her legs back in bed. I asked the pt about family locally and she stated she has a sister and a nephem, Justa and Juan Francisco Lugo but cannot remember their number. In talking one of her long time CGs, Fahad Bee, he states her sister has been for a number of years and her APD fbi profiler has not been able to locate any other living family members. CG Camilo Fink at [phone] has been her surrogate decision maker for medical care for years at this point per Fahad. I have left a message with Danae to return nonurgent call when available so I can review pt's current status and begin advanced care planning with her for Jessica. I would like to review code status, updating her POLST and discussion re: shelter renal care or hospice if renal function continues to decline and dialysis is required. Drs, CM and RN updated on my visit. Pt reports nevaeh LE pain, "all the time". This was reported to RN.
--- NOTE | 2020-01-06 17:01 | NUR ---
ALERT TO SELF AND KNOWS WHAT TOWN SHE IS IN. DOES NOT KNOW SHE LIVES IN [facility]--"I LIVE ALONE." DEMENTIA, BUT SEEMS TO BE EASILY DIRECTABLE. FORGETS HOW TO DO THINGS; SUCH , HOW TO WALK. WHEN SHE TRIES TO GET OOB, IT SEEMS LIKE SHE HAS TO URINATE. NEEDS TRAY SET UP AND SMALL ITEMS LIKE SALT AND PEPPER TAKEN OFF TRAY IF NOT USED SHE WILL OPEN THEM AND PUT THEM ANYWHERE; SUCH , PUTTING PEPPER ON HER BREAD. CONTINUOUS SATS W/SATS ABOVE 90%. UNLABORED RESPIRATIONS OFF OXYGEN. WCTM.
[2020-01-07 05:32] LABS: BASOPHILS ABSOLUTE AUTO 0.07 K/mm3 (0.00-0.23); BASOPHILS PERCENT AUTO 1 % (0-2); EOSINOPHILS ABSOLUTE AUTO 0.22 K/mm3 (0.00-0.68); EOSINOPHILS PERCENT AUTO 2 % (0-6); Hematocrit 29.2 % (33.0-51.0); Hemoglobin 8.6 g/dL (11.5-16.0); IMMATURE GRAN ABSOLUTE AUTO 0.05 K/mm3 (0.00-0.10); IMMATURE GRAN PERCENT AUTO 0 % (0-1); LYMPHOCYTES ABSOLUTE AUTO 0.82 K/mm3 (0.84-5.20); LYMPHOCYTES PERCENT AUTO 7 % (21-46); MONOCYTES ABSOLUTE AUTO 0.72 K/mm3 (0.16-1.47); MONOCYTES PERCENT AUTO 6 % (4-13); Mean Corpuscular HGB 27.1 pg (26.0-34.0); Mean Corpuscular HGB Conc 29.5 g/dL (31.5-36.5); Mean Corpuscular Volume 92 fL (80-100); Mean Platelet Volume 10.3 fL (9.1-12.4); NEUTROPHILS ABSOLUTE AUTO 9.56 K/mm3 (1.96-9.15); NEUTROPHILS PERCENT AUTO 84 % (41-73); Platelet Count 291 K/mm3 (150-400); RDW Coefficient Variation 15.6 % (11.7-14.2); RDW Standard Deviation 52.6 fL (35.1-46.3); Red Blood Cell Count 3.17 M/mm3 (3.80-5.20); White Blood Cell Count 11.44 K/mm3 (4.00-11.30)
[2020-01-07 05:55] LABS: Bun/Creatinine Ratio 14.4 (12.0-20.0); Creatinine, Blood 3.2 mg/dL (0.40-1.00); Potassium, Blood 4.3 mmol/L (3.5-5.5)
--- NOTE | 2020-01-07 06:42 | NUR ---
SHIFT SUMMARY ALERT TO SELF. COOPERATIVE WITH CARE. ANSWERS QUESTIONS TO THE BEST OF HER KNOWLEDGE. NO C/O OR S/S OF PAIN/DISCOMFORT. DID NOT APPEAR TO REST MUCH OVERNIGHT. PULLING AT LINES/CORDS. ATTEMPTING TO EXIT BED BY SCOOTING; BED IN LOWEST POSITION; ALARM ON. NOTED THAT BP ELEVATED THIS AM. ORDERS CHANGED BY ON-CALL PROVIDER FOR BLOOD PRESSURE MEDICATIONS; WILL RELAY TO ONCOMING SHIFT TO RELAY TO ATTENDING. NO OTHER CHANGES NOTED. CALL LIGHT IN REACH; HOWEVER, DOES NOT UTILIZE. WCTM. REPORT TO ONCOMING RN.
--- NOTE | 2020-01-07 15:37 | NUR ---
TALKED TO ABOUT HIGH BLOOD PRESSURE. ORDERED NIFEDIPINE 30 MG FOR NOW
--- NOTE | 2020-01-07 18:06 | NUR ---
ALERT TO SELF. UNLABORED RESPIRATIONS ON R.A. GOT UP TO BSC MULTIPLE TIMES TODAY W/STANDBY ASSIST. PLEASANTLY CONFUSED. DRESSING TO BILATERAL FEET CHANGED W/SMALL AMOUNT DRIED BLOOD TO EACH. HAD XXLG B.M. IV PATENT. NO ACUTE CHANGES WCTM
[2020-01-08 05:39] LABS: BASOPHILS ABSOLUTE AUTO 0.04 K/mm3 (0.00-0.23); BASOPHILS PERCENT AUTO 0 % (0-2); EOSINOPHILS ABSOLUTE AUTO 0.32 K/mm3 (0.00-0.68); EOSINOPHILS PERCENT AUTO 3 % (0-6); Hematocrit 30.1 % (33.0-51.0); IMMATURE GRAN ABSOLUTE AUTO 0.06 K/mm3 (0.00-0.10); IMMATURE GRAN PERCENT AUTO 1 % (0-1); LYMPHOCYTES ABSOLUTE AUTO 1.07 K/mm3 (0.84-5.20); LYMPHOCYTES PERCENT AUTO 10 % (21-46); MONOCYTES ABSOLUTE AUTO 0.76 K/mm3 (0.16-1.47); MONOCYTES PERCENT AUTO 7 % (4-13); Mean Corpuscular HGB 27.6 pg (26.0-34.0); Mean Corpuscular HGB Conc 29.9 g/dL (31.5-36.5); Mean Corpuscular Volume 92 fL (80-100); Mean Platelet Volume 10.3 fL (9.1-12.4); NEUTROPHILS ABSOLUTE AUTO 8.39 K/mm3 (1.96-9.15); NEUTROPHILS PERCENT AUTO 79 % (41-73); Platelet Count 325 K/mm3 (150-400); RDW Coefficient Variation 15.6 % (11.7-14.2); RDW Standard Deviation 52.8 fL (35.1-46.3); Red Blood Cell Count 3.26 M/mm3 (3.80-5.20); White Blood Cell Count 10.64 K/mm3 (4.00-11.30)
[2020-01-08 06:02] LABS: Calcium, Blood 8.1 mg/dL (8.5-10.1); Creatinine, Blood 3.14 mg/dL (0.40-1.00); Potassium, Blood 4.7 mmol/L (3.5-5.5)
--- NOTE | 2020-01-08 06:21 | NUR ---
BUSINESS OPERATIONS DIRECTOR SUMMARY NO ACUTE CHANGES. PT AAOX1 BUT PLEASANT AND FOLLOWS DIRECTION. DENIES PAIN, SOB, N/V. HAS RESTED MOST OF THE NIGHT. ASSISTED WITH ATTENDS CHANGES AND REPOSITIONING. VSS, WILL CONTINUE TO MONITOR.
[2020-01-08] MEDS ORDERED: NIFE30ER PO (13:18)
[2020-01-08] MEDS ORDERED: CEPH250A PO (13:18)
[2020-01-08] MEDS ORDERED: MIRALAX17 GM PO (13:20)
--- NOTE | 2020-01-08 15:19 | NUR ---
DISCHARGE NOTE PT'S IV HAS BEEN DISCHARGED AT 1330. THE HAD HER BELONGINGS INCLUDES, SHOES AND SOCK IN HER HOSPITAL BAG. AMBULANCE CAME IN TO PICK HER UP AT 1520. TRANSPORT TO [facility]. SANJU LOERA CALLED FOR THE REPORT.
--- NOTE | 2020-01-08 15:20 | NUR ---
DISCHARGE REPORT CALLED TO BRADLEY AT PT'S [facility] PRIOR TO DISCHARGE. MEDICATION ORDERS FAXED TO THE [facility] AND TO [facility]. PT VERBALIZED FEELING EXCITED TO RETURN HOME. PT IS A 1 PERSON ASSIST WITH GAIT BELT AND WALKER.
== END 2020-01-08 15:24 | disposition home or self-care (01) | DRG 853 ==
LOC: ER 21:41 → MEDS 23:56
PROVIDERS: Emergency Medicine; Family Medicine; Hospitalist; Internal Medicine; Nurse Practitioner Acute Care; ADMIT Internal Medicine
PROC: 0YBM0ZZ Excision of Right Foot, Open Approach (ICD-10-PCS; principal; 2020-01-06)
PROC: 0JBR0ZZ Excision of Left Foot Subcutaneous Tissue and Fascia, Open Approach (ICD-10-PCS; 2020-01-06)
DX: A41.9 Sepsis, unspecified organism (principal); G92 Toxic encephalopathy; J18.9 Pneumonia, unspecified organism; L03.115 Cellulitis of right lower limb; L03.116 Cellulitis of left lower limb; N18.4 Chronic kidney disease, stage 4 (severe); E11.621 Type 2 diabetes mellitus with foot ulcer; L97.512 Non-pressure chronic ulcer of other part of right foot with fat layer exposed; L97.529 Non-pressure chronic ulcer of other part of left foot with unspecified severity; E78.5 Hyperlipidemia, unspecified; I12.9 Hypertensive chronic kidney disease with stage 1 through stage 4 chronic kidney disease, or unspecified chronic kidney disease; F32.9 Major depressive disorder, single episode, unspecified; F03.90 Unspecified dementia, unspecified severity, without behavioral disturbance, psychotic disturbance, mood disturbance, and anxiety; E11.22 Type 2 diabetes mellitus with diabetic chronic kidney disease; S91.101A Unspecified open wound of right great toe without damage to nail, initial encounter; K59.00 Constipation, unspecified; E11.42 Type 2 diabetes mellitus with diabetic polyneuropathy; D63.1 Anemia in chronic kidney disease; E11.65 Type 2 diabetes mellitus with hyperglycemia; M81.0 Age-related osteoporosis without current pathological fracture; Z89.432 Acquired absence of left foot; Z79.83 Long term (current) use of bisphosphonates; Z79.82 Long term (current) use of aspirin
CPT/HCPCS: 36415; 71045; 73660; 80048; 80053; 82947; 83605; 85025; 85610; 85730; 87040; 93005; 93010; 94762; 96365; 96367; 97165; 97535; 99285-25; A9270; A9270-GY; J0690; J0692; J0696; J1650; J3370; J7030; J7040; J7050

== ENCOUNTER → 2020-02-17 | Outpatient (CLI) | payer OTHER ==
[~2020-02-17] MED LIST changes: +CEPH250A PO; +MIRALAX17 GM PO; +NIFE30ER PO
[2020-02-17 13:26] LABS: Source, Urine Clean Catch
[2020-02-17 15:51] LABS: Appearance, Urine Cloudy (Clear); Bilirubin, Urine Neg (Neg); Blood, Urine 2+ (Neg); Color, Urine Yellow (P-Yellow); Glucose Qualitative, Urine 3+ (Neg); Ketones, Urine Neg (Neg); Leukocyte Esterase, Urine 3+ (Neg); Nitrite, Urine Neg (Neg); Protein, Urine 4+ (Neg); Urobilinogen, Urine NORM (Normal)
[2020-02-17 16:02] LABS: Amorphous Mod (0-Heavy); Bacteria Many /hpf; Red Blood Cells, Urine 0-2 /hpf (0-2); Squamous Epithelial Cells Few /hpf (Few); White Blood Cells, Urine TNTC /hpf (0-5)
== END | disposition home or self-care (01) ==
LOC: LAB 13:24 → LAB SHORT 13:24
PROVIDERS: Internal Medicine
DX: N39.0 Urinary tract infection, site not specified (principal)
CPT/HCPCS: 81001; 87077; 87086; 87186

== ENCOUNTER → 2020-03-10 | Outpatient (CLI) | payer OTHER ==
[2020-03-10 15:09] LABS: Appearance, Urine Turbid (Clear); Bilirubin, Urine Neg (Neg); Blood, Urine 2+ (Neg); Color, Urine Yellow (P-Yellow); Glucose Qualitative, Urine 2+ (Neg); Ketones, Urine Neg (Neg); Leukocyte Esterase, Urine 3+ (Neg); Nitrite, Urine Neg (Neg); Protein, Urine 4+ (Neg); Specific Gravity, Urine 1.015 (1.003-1.022); Urobilinogen, Urine NORM (Normal)
[2020-03-10 15:42] LABS: Bacteria Many /hpf; Squamous Epithelial Cells Few /hpf (Few); White Blood Cells, Urine TNTC /hpf (0-5)
== END | disposition home or self-care (01) ==
LOC: LAB 13:38 → LAB SHORT 13:38
PROVIDERS: Internal Medicine
DX: N39.0 Urinary tract infection, site not specified (principal)
CPT/HCPCS: 81001; 87077; 87086; 87186